=== PATIENT | female | born 1995 | race Caucasian/White ===

== ENCOUNTER 2019-10-22 13:49 | Emergency (ER) | payer OTHER, SELFPAY ==
--- NOTE | 2019-10-22 14:00 | ED.GENADULT ---
HPI - General Adult General Chief complaint: Dizziness Stated complaint: dizzy/lightheaded Time Seen by Provider: 10/22/19 14:15 Source: patient Mode of arrival: ambulatory Limitations: no limitations History of Present Illness HPI narrative: 24-year-old female patient presents to the [facility] with complaints of lightheadedness and dizziness that started approximately 1 hour ago while she was at work. Patient states she just came back from her lunch break and states that she was sweeping the floor and all of a sudden she just felt like she could not raise her head and had some lightheadedness and dizziness. Patient states that she Vincent did drive herself here. Denies any vision changes. Patient states she has had a slight headache. Denies any chest pain or shortness of breath. Denies any abdominal pain, nausea, vomiting or diarrhea. Patient unsure of when her last menstrual cycle was. Patient states she has been under a lot of stress recently due to the fact that she recently had a break-up about 2 months ago. Patient states she has had anxiety and panic attacks before the past but denies ever being treated for them. Related Data Home Medications Medication Instructions Recorded Confirmed No Home Medications 10/22/19 10/22/19 Allergies Allergy/AdvReac Type Severity Reaction Status Date / Time No Known Allergies Allergy Unknown Unverified 10/22/19 14:38 Review of Systems Review of Systems: Narrative: CONSTITUTIONAL: Denies fever, chills, or sweats. EYES: Denies visual changes, redness, or discharge. ENT: Denies rhinorrhea, congestion, sore throat, or otalgia. CARDIOVASCULAR: Denies chest pain, palpitations, or edema. RESPIRATORY: Denies cough or dyspnea. GASTROINTESTINAL: Denies abdominal pain, nausea, vomiting, or diarrhea. GENITOURINARY: Denies dysuria or hematuria. SKIN: Denies rash or itching. MUSCULOSKELETAL: Denies back pain, joint pain, or myalgia. NEUROLOGIC: Positive headache, denies numbness, positive dizziness, lightheadedness and weakness. PSYCHIATRIC: Denies anxiety or depression. [facility] Past Medical History Medical History (Updated 10/22/19 @ 15:09 by JAIME Garcia) Anxiety Ear anomaly Recurrent right ear lesion, once removed 2013 Comments At the time of my signature I agree with nursing past medical history, surgical, social, and family history. There is no relevant family history pertinent to the presenting complaint. Exam Narrative: Exam Narrative: GENERAL: Well-appearing, well-nourished, and in no acute distress. HEAD: Normocephalic, atraumatic. EYES: PERRLA and EOMI. ENT: Nares clear, no rhinorrhea or epistaxis. Mucous membranes moist. Posterior pharynx no erythema, tonsil enlargement, exudates or lesions present. Bilateral TMs are clear with no erythema or foreign bodies in the canal. NECK: Supple. No lymphadenopathy CHEST: Clear to auscultation. No respiratory distress. HEART: Regular rate and rhythm. No murmur heard. Normal peripheral pulses. ABDOMEN: Soft, nontender, nondistended, normal active bowel sounds. EXTREMITIES: Normal range of motion. No edema. SKIN: Warm, dry, no rash. NEURO: Alert and oriented x4, GCS 15. Cranial nerves II through XII grossly intact. No focal neurological deficits. Normal muscle strength and tone. Normal deep tendon reflexes. Negative Babinski, normal finger to nose coordination he had normal heel to cosby glide. Speech is clear. Normal gait. Negative Romberg and no pronator drift Course Reevaluation(s) Reevaluation #1: Reevaluated patient. Discussed with her that her EKG is normal, her urine looks good, her test is normal and her blood sugar is fine. Discussed with her that orthostatics vital signs look good as well too. Discussed with her that this could be possibly some anxiety or stress that is causing her symptoms or could be something else. Discussed with her that I can send her to the emergency department for further evaluation yaneli
[2019-10-22 14:05] VITALS: BP 121/69; PULSE 100; RESP 18; TEMP 37.1; O2SAT 100
--- NOTE | 2019-10-22 14:18 | ECG_ITS ---
Measurements Intervals [place] Rate: 98 P: 63 NE: 166 QRS: 46 QRSD: 99 T: 20 QT: 332 QTc: 425 Interpretive Statements SINUS RHYTHM INCOMPLETE RIGHT BUNDLE BRANCH BLOCK BORDERLINE T WAVE ABNORMALITY- ANTERIOR LEADS BORDERLINE ECG Electronically Signed On 10-22-2019 14:33:43 CDT by Gabe Chester D.O.
[2019-10-22 14:25] VITALS: BP 132/77; PULSE 97
[2019-10-22 14:27] VITALS: BP 125/75; PULSE 97
[2019-10-22 14:29] VITALS: BP 130/69; PULSE 101
[2019-10-22 14:32] LABS: Glucose Point of Care 77 (65-105)
[2019-10-22] MEDS: ACETAMINOPHEN 500 MG TABLET 1000 MG PO (15:02)
== END 2019-10-22 15:10 | disposition home or self-care (01) ==
PROVIDERS: Emergency Provider Nurse Practitioner Family; PCP Nurse Practitioner Adult Health
DX: R42 Dizziness and giddiness (principal)
CPT/HCPCS: 81003; 82948; 93005; 99213; A9270; G0463

== ENCOUNTER 2022-03-30 09:20 | Emergency (ER) | payer OTHER, SELFPAY ==
--- NOTE | ~2022-03-30 | CT_ITS ---
EXAMINATION: CT abdomen pelvis w con DATE: 03/30/2022 11:50 INDICATION: Bilateral flank pain. TECHNIQUE: Computed tomography (CT) of the abdomen and pelvis was performed with 100 mL Omnipaque 350 intravenous contrast. Automated exposure control and iterative reconstruction technique were employe d. The dose-length product was 896.18 mGy-cm. COMPARISON: None. FINDINGS: The visualized portions of the lung bases are clear without pneumonia or pleural effusion. The heart size is normal. No pericardial effusion. The liver, gallbladder, spleen, pancreas, adrenal glands, and kidneys are normal. There are no dilated loops of bowel. The appendix is normal. There is fat stranding around an epiploic appendage of sigmoid colon, consistent with epiploic appendagitis. There is a 10 x 11 mm lymph node in the mesentery on the right. There is no free intraperitoneal flui d. There is mild lumbar spondylosis. IMPRESSION: 1. Epiploic appendagitis of the sigmoid colon, which may be acute or chronic. 2. Mildly enlarged mesenteric lymph node, likely reactive. Reviewed, dictated and finalized at location A. [employer]
[2022-03-30 09:35] VITALS: BP 130/76; PULSE 92; RESP 14; TEMP 36.8; O2SAT 98
[2022-03-30 09:46] LABS: Basophils Absolute Auto 0.1 K/mm3 (0.0-0.1); Basophils Percent Auto 0.7 % (0.2-1.2); Eosinophils Absolute Auto 0.1 K/mm3 (0-0.3); Eosinophils Percent Auto 1.3 % (0-4.4); Hematocrit 41.4 % (37.0-47.0); Hemoglobin 13.1 g/dL (12.0-15.0); Immature Granulocyte Absolute 0.03 K/mm3 (0.00-0.031); Immature Granulocyte Percent A 0.4 % (0-0.5); Lymphocytes Absolute Auto 1.72 K/mm3 (0.9-3.2); Lymphocytes Percent Auto 24.9 % (18.3-44.2); Mean Corpuscular HGB Conc 31.6 g/dl (32-36); Mean Corpuscular Hemoglobin 25.2 pg (26-34); Mean Corpuscular Volume 79.6 fl (80-100); Mean Platelet Volume 9.4 fl (7.4-10.4); Monocytes Absolute Auto 0.5 K/mm3 (0.1-0.6); Monocytes Percent Auto 6.5 % (2.6-8.5); Neutrophils Absolute Auto 4.6 K/mm3 (1.3-6.7); Neutrophils Percent Auto 66.2 % (45.5-73.1); Platelet Count Result 313 k/mm3 (150-375); Red Cell Distribution Width 15.2 % (11.5-14.5); White Blood Count 6.9 K/mm3 (4.5-10.0)
[2022-03-30 10:00] LABS: Alanine Aminotransferase 18 U/L (6-35); Albumin Level 4.3 g/dL (3.5-5.1); Alkaline Phosphatase 77 U/L (38-126); Anion Gap 8 mmol/L (8-16); Aspartate Amino Transferase 21 U/L (14-36); Bilirubin,Total 0.6 mg/dL (0.2-1.3); Blood Urea Nitrogen 15 mg/dL (7-17); Calcium 8.4 mg/dL (8.4-10.2); Carbon Dioxide 22 mmol/L (22-30); Chloride 108 mmol/L (98-107); Estimated CRCL calculation 110 ml/min; Estimated Glomerular Filt Rate > 60; Glucose 100 mg/dL (65-110); Potassium 3.8 mmol/L (3.4-5.0); Sodium 138 mmol/L (137-145)
[2022-03-30 10:02] LABS: Add Urine Microscopic? YES; Bilirubin Urine 1+ (Negative); Blood Urine 1+ (Negative); Color Urine Yellow (Yellow); Glucose Urine UA Negative (Negative); Ketones Urine Trace mg/dL (Negative); Leukocyte Esterase Ur 2+ LEU/UL (Negative); Nitrate Urine Negative (Negative); Protein Urine Trace mg/dL (Negative); Specific Grav Ur 1.025 (1.001-1.035)
[2022-03-30 10:04] LABS: Appearance Urine Cloudy (Clear)
[2022-03-30 10:15] LABS: Mucus Urine Heavy /lpf; RBC Urine 21-50 /hpf (0-2); Squamous Epithelial Cell Urine Many /hpf (Few); WBC Urine 16-20 /hpf
--- NOTE | 2022-03-30 11:23 | ED.BACK ---
HPI - Back Pain/Injury General Chief Complaint: Back Pain/Injury Stated Complaint: severe lower back pain Time Seen by Provider: 03/30/22 10:11 History of Present Illness HPI Narrative: 27-year-old female with a history of anxiety and anemia presents to the emergency room for evaluation of severe lower back pain since Monday. Patient states the pain is bilateral and does not radiate. Is worse with movement. Was seen at the urgent care on Monday and was diagnosed with a kidney stone and given Flomax, naproxen, Keflex, and tizanidine. Last menstrual period was 03/29. Associated with 1 episode of vomiting at work. Denies hematuria, dysuria, decreased urinary flow. States medications given to her at the urgent care are not alleviating her symptoms. Denies injury or trauma. No radicular symptoms. No saddle anesthesia. Related Data Home Medications Medication Instructions Recorded Confirmed No Home Medications 10/22/19 10/22/19 Allergies Allergy/AdvReac Type Severity Reaction Status Date / Time No Known Allergies Allergy Unknown Unverified 10/22/19 14:38 Review of Systems Review of Systems: CONSTITUTIONAL: Denies fever, chills, or sweats. EYES: Denies visual changes, redness, or discharge. ENT: Denies rhinorrhea, congestion, sore throat, or otalgia. CARDIOVASCULAR: Denies chest pain, palpitations, or edema. RESPIRATORY: Denies cough or dyspnea. GASTROINTESTINAL: Denies abdominal pain, nausea, vomiting, or diarrhea. GENITOURINARY: Denies dysuria or hematuria. SKIN: Denies rash or itching. MUSCULOSKELETAL: Reports lower back pain NEUROLOGIC: Denies headache, numbness, dizziness, or weakness. PSYCHIATRIC: Denies anxiety or depression. [facility] Past Medical History Medical History Anxiety Asthma Depression Ear anomaly Recurrent right ear lesion, once removed 2014 Frequent headaches Surgical History Surgical History History of ear surgery closure of fistula of ear drum Family History Family History Grandparent Diabetes mellitus paternal grandmother Breast cancer maternal grandmother Exam Narrative: GENERAL: Well-appearing, well-nourished, no physical limitations, and in no acute distress. HEAD: Normocephalic, atraumatic. EYES: Conjunctivae normal, PERRLA and EOMI. CHEST: Clear to auscultation. No respiratory distress. No wheezes rales or rhonchi. HEART: Regular rate and rhythm. No murmur heard. Normal peripheral pulses. ABDOMEN: Soft, nontender, nondistended, normal active bowel sounds. BACK: No CVA tenderness; No midline lumbar tenderness, step-offs, bony abnormality; FROM. Tenderness over the paralumbar and thoracolumbar fascia EXTREMITIES: Normal range of motion. No edema. No clubbing or cyanosis SKIN: Warm, dry, no rash. No noted wounds NEURO: No focal deficits. Alert and oriented x3. MAEW. CN's II-XI intact bilaterally, normal gait PSYCH: Cooperative. Normal mood and affect. Course Vital Signs Vital signs: Vital Signs Temperature 36.8 C 03/30/22 09:35 Pulse Rate 92 03/30/22 09:35 Respiratory Rate 14 03/30/22 09:35 Blood Pressure 130/76 03/30/22 09:35 Pulse Oximetry 98 03/30/22 09:35 Oxygen Delivery Room Air 03/30/22 09:35 Temperature 36.8 C 03/30/22 09:35 Pulse Rate 92 03/30/22 09:35 Respiratory Rate 14 03/30/22 09:35 Blood Pressure 130/76 03/30/22 09:35 Pulse Oximetry 98 03/30/22 09:35 Oxygen Delivery Room Air 03/30/22 09:35 MDM - Back Pain/Injury Lab Data 03/30/22 09:39 03/30/22 09:40 Labs: Lab Results 03/30/22 03/30/22 03/30/22 Range/Units 09:39 09:40 09:50 WBC 6.9 (4.5-10.0) K/mm3 RBC 5.20 (4.2-5.4) M/mm3 Hgb 13.1 (12.0-15.0) g/dL Hct 41.4 (37.0-47.0) % MCV 79.6 L (80-100) fl MCH 25.2 L (2
[2022-03-30] MEDS: SODIUM CHLORIDE 0.9% IV 1,000 ML 999 ML IV CONT (11:30)
[2022-03-30 13:20] VITALS: BP 118/86; PULSE 89; RESP 16; O2SAT 99
== END 2022-03-30 13:20 | disposition home or self-care (01) ==
PROVIDERS: Emergency Medicine; Emergency Provider Nurse Practitioner Family
DX: K63.89 Other specified diseases of intestine (principal); R10.9 Unspecified abdominal pain; J45.909 Unspecified asthma, uncomplicated; Z87.442 Personal history of urinary calculi
CPT/HCPCS: 36415; 74177; 80053; 81001; 81025; 85025; 87086; 96360; 99284; J7030; Q9967

== ENCOUNTER 2022-06-07 10:05 | Emergency (ER) | payer OTHER, SELFPAY ==
[2022-06-07 10:11] VITALS: BP 144/85; PULSE 78; RESP 16; TEMP 37.2; O2SAT 99
--- NOTE | 2022-06-07 10:14 | ECG_ITS ---
Measurements Intervals [place] Rate: 93 P: 50 [place]: 145 QRS: 25 QRSD: 89 T: 9 QT: 329 QTc: 410 Interpretive Statements SINUS RHYTHM ST DEVIATION AND MODERATE T-WAVE ABNORMALITY, CONSIDER ANTERIOR ISCHEMIA [-0.1+ mV T WAVE IN V3/V4] ABNORMAL ECG COMPARED TO ECG 10/22/2019 14:31:19 NO SIGNIFICANT CHANGES Electronically Signed On 06-07-2022 14:15:05 ELECTRONIC INSTALLER by Escobar Kaiser M.D.
--- NOTE | 2022-06-07 13:17 | PC.NURSE ---
Patient states to this RN that she is no longer wanting to wait to be seen in the ED and I'm going to go somewhere else . Patient ambulated out of emergency department without assistance.
== END 2022-06-07 13:20 | disposition left against medical advice (07) ==
PROVIDERS: Emergency Provider Emergency Medicine
DX: R07.81 Pleurodynia (principal)
CPT/HCPCS: 93005; 99199

== ENCOUNTER 2023-04-03 22:12 | Emergency (ER) | payer BC, OTHER, SELFPAY ==
--- NOTE | ~2023-04-03 | XR_ITS ---
Clinical Indication: Cough PA and lateral views of the chest: Comparison: None Findings: The lungs are clear, without evidence of focal consolidation or pleural effusion. Cardiome diastinal silhouette is within normal limits. Bones and soft tissues are unremarkable. Impression: Normal chest. Reviewed, dictated and finalized at [facility]. E POLISHER Impression: Normal chest.
[2023-04-03 22:28] VITALS: BP 152/71; PULSE 90; RESP 20; TEMP 36.8; O2SAT 98
[2023-04-04 00:17] LABS: Influenza A QL RT-PCR Negative (Negative); Influenza B QL RT-PCR Negative (Negative); RSV RNA, RT-PCR Negative (Negative); SARS-CoV-2 RNA PCR Negative (Negative)
--- NOTE | 2023-04-04 00:31 | ED.URI ---
HPI - URI/Sore Throat General Chief Complaint: Upper Respiratory Infection Stated Complaint: cough Time Seen by Provider: 04/03/23 23:42 History of Present Illness HPI Narrative: 28-year-old female reports for evaluation for productive cough since 03/22/2023. Patient states she tested positive for influenza a on the 22 of March and since then has had a persistent productive cough. She states at times she coughs so hard it causes her to urinate in her pants, gag and vomit. She reports intermittent wheezing, denies asthma, smoking or COPD. She denies abdominal pain, fever, sore throat, otalgia, nasal congestion, urinary complaints. Related Data Home Medications Medication Instructions Recorded Confirmed atorvastatin 40 mg tablet 40 mg PO 01/18/23 escitalopram oxalate 10 mg tablet 10 mg PO 01/18/23 Allergies Allergy/AdvReac Type Severity Reaction Status Date / Time No Known Allergies Allergy Unknown Verified 04/03/23 22:12 Review of Systems Review of Systems: CONSTITUTIONAL: Denies fever, chills, or sweats. EYES: Denies visual changes, redness, or discharge. ENT: See HPI CARDIOVASCULAR: Denies chest pain, palpitations, or edema. RESPIRATORY: See HPI GASTROINTESTINAL: Denies abdominal pain, nausea, vomiting, or diarrhea. GENITOURINARY: Denies dysuria or hematuria. SKIN: Denies rash or itching. MUSCULOSKELETAL: Denies back pain, joint pain, or myalgia. NEUROLOGIC: Denies headache, numbness, or weakness. PSYCHIATRIC: Denies anxiety or depression. REPLACED BY [facility] Past Medical History Medical History Anxiety Asthma Depression Ear anomaly Recurrent right ear lesion, once removed 2014 Frequent headaches Vaginal discharge Surgical History Surgical History History of ear surgery closure of fistula of ear drum Family History Family History Grandparent Diabetes mellitus paternal grandmother Breast cancer maternal grandmother Social History Social History Smoking status: Never smoker Alcohol intake: former Substance use: never Lack of Transportation: No Lack of Food: Never True Current Housing: I Have Housing Concerned About Future Housing: No Difficulty Paying Gas/Electric Bills: No Difficulty Paying for Meds: No Currently Unemployed: No Education: High School Diploma/GED Difficulty w/ Childcare or Family Care: No Living arrangements: with family Occupation/Education: occupation Gender identity (if verbalized by the patient): Female Exam Narrative: GENERAL: Well-appearing, well-nourished, and in no acute distress. HEAD: Normocephalic, atraumatic. EYES: PERRLA and EOMI. ENT: Nares clear, no rhinorrhea or epistaxis. Mucous membranes moist. Bilateral TMs are yu nonbulging. Normal canals. Posterior pharynx without erythema or edema. Uvula midline. No tonsillar hypertrophy. NECK: Supple. CHEST: Rhonchi throughout lung duke. No crackles or wheezing. HEART: Regular rate and rhythm. No murmur heard. Normal peripheral pulses. ABDOMEN: Soft, nontender, nondistended, normal active bowel sounds. EXTREMITIES: Normal range of motion. No edema. SKIN: Warm, dry, no rash. NEURO: No focal deficits. Alert and oriented x3 Course Vital Signs Vital signs: Vital Signs Temperature 98.3 F 04/03/23 22:28 Pulse Rate 90 04/03/23 22:28 Respiratory Rate 20 04/03/23 22:28 Blood Pressure 152/71 H 04/03/23 22:28 Pulse Oximetry 98 04/03/23 22:28 Oxygen Delivery Room Air 04/03/23 22:28 Temperature 98.1 F 04/04/23 00:52 Pulse Rate 81 04/04/23 00:52 Respiratory Rate 16 04/04/23 00:52 Blood Pressure 133/78 04/04/23 00:52 Pulse Oximetry 97 04/04/23 00:52 Oxygen Delivery Room Air 04/03/23 22:28
[2023-04-04 00:52] VITALS: BP 133/78; PULSE 81; RESP 16; TEMP 36.7; O2SAT 97
== END 2023-04-04 00:53 | disposition home or self-care (01) ==
PROVIDERS: Emergency Medicine; Emergency Provider Physician Assistant; PCP Internal Medicine
DX: J40 Bronchitis, not specified as acute or chronic (principal); Z20.822 Contact with and (suspected) exposure to COVID-19; F41.9 Anxiety disorder, unspecified; F32.A Depression, unspecified
CPT/HCPCS: 71046; 87637; 99283

== ENCOUNTER 2023-04-22 13:56 | Emergency (ER) | payer BC, OTHER, SELFPAY ==
[2023-04-22 14:14] VITALS: BP 138/80; PULSE 103; RESP 18; TEMP 36.8; O2SAT 98
--- NOTE | 2023-04-22 14:49 | ED.EAR ---
HPI - Ear Problem General Chief complaint: Ear Stated complaint: Ears Irritation Time Seen by Provider: 04/22/23 15:01 Source: patient and RN notes reviewed Mode of arrival: ambulatory Limitations: no limitations History of Present Illness HPI Narrative: 28-year-old female presents concern for bilateral ear pain for 1 week. Reports decreased hearing and popping in the left ear. She reports she has been sick with upper respiratory symptoms for 1 month. MD Complaint: ear pain Related Data Home Medications Medication Instructions Recorded Confirmed atorvastatin 40 mg tablet 40 mg PO 01/18/23 escitalopram oxalate 10 mg tablet 10 mg PO 01/18/23 albuterol sulfate 90 mcg/actuation 1 inh inhalation QID shortness of 04/22/23 aerosol inhaler breath or wheezing Allergies Allergy/AdvReac Type Severity Reaction Status Date / Time No Known Allergies Allergy Unknown Verified 04/22/23 14:15 Review of Systems Review of Systems: CONSTITUTIONAL: Denies malaise, chills, sweats, or fever. EYES: Denies visual changes, redness, or discharge. ENT: Reports rhinorrhea, congestion. Denies sinus pain, and sore throat. Reports bilateral ear pain CARDIOVASCULAR: Denies chest pain, palpitations, or edema. RESPIRATORY: Denies cough. Denies dyspnea. GASTROINTESTINAL: Denies abdominal pain, nausea, vomiting, diarrhea SKIN: Denies rash or itching. MUSCULOSKELETAL: Denies myalgia. NEUROLOGIC: Denies headache. All systems reviewed & are unremarkable except as noted in HPI and below PMFSH Past Medical History Medical History Anxiety Asthma Depression Ear anomaly Recurrent right ear lesion, once removed 2014 Frequent headaches Vaginal discharge Surgical History Surgical History History of ear surgery closure of fistula of ear drum Family History Family History Grandparent Diabetes mellitus paternal grandmother Breast cancer maternal grandmother Social History Social History Smoking status: Never smoker Alcohol intake: former Substance use: never Lack of Transportation: No Lack of Food: Never True Current Housing: I Have Housing Concerned About Future Housing: No Difficulty Paying Gas/Electric Bills: No Difficulty Paying for Meds: No Currently Unemployed: No Education: High School Diploma/GED Difficulty w/ Childcare or Family Care: No Living arrangements: with family Occupation/Education: occupation Gender identity (if verbalized by the patient): Female Comments At time of signature, agree with nursing past medical, surgical, social and family history. There is no relevant family history pertinent to the presenting complaint Exam Narrative: GENERAL: Well-appearing, well-nourished, and in no acute distress. HEAD: Normocephalic EYES: PERRLA, conjunctivae clear ENT: Nares clear, turbinates edematous, clear discharge. Mucous membranes moist. TM pearly yu with dull light reflex bilaterally; no tragal tenderness. Oropharynx not erythematous without lesions. Tonsils not enlarged and without exudate, no drooling, no hoarseness, no trismus, uvula midline. NECK: Supple. No lymphadenopathy CHEST: Clear to auscultation, breath sounds equal. No wheezing, rhonchi, rales, or stridor. No respiratory distress, speaks in full sentences. HEART: Regular rate and rhythm. No murmur heard. SKIN: Warm, dry, no rash. NEURO: Alert and oriented x3. PSYCH: Normal mood and affect Course Course Emergency Course: Patient is aware of diagnosis, understands and agrees to treatment plan. Anticipatory guidance given. Patient agrees to follow-up as directed and is aware of reasons to seek care at the emergency department. Portions of this record may have been created wit
== END 2023-04-22 15:19 | disposition home or self-care (01) ==
PROVIDERS: Emergency Provider Nurse Practitioner; PCP Internal Medicine
DX: H66.93 Otitis media, unspecified, bilateral (principal); J45.909 Unspecified asthma, uncomplicated
CPT/HCPCS: 99213; G0463

== ENCOUNTER 2023-08-30 15:11 | Outpatient (CLI) | payer OTHER, SELFPAY ==
[2023-09-01 19:29] LABS: Testosterone Total 19 ng/dL (2-45)
[2023-09-03 02:08] LABS: DHEA-Sulfate 198 mcg/dL (14-349); FSH 6.5 mIU/mL; Prolactin 10.2 ng/mL
[2023-09-05 20:34] LABS: Anti Mullerian Hormone,Female 4.65 ng/mL (0.69-13.39)
[2023-09-08 08:13] LABS: Estradiol, Ultrasensitive 36 pg/mL
== END 2023-08-30 15:12 | disposition home or self-care (01) ==
LOC: ANHLAB 15:12
PROVIDERS: PCP Internal Medicine; Visit Provider Student in an Organized Health Care Education/Training Program
DX: N91.2 Amenorrhea, unspecified (principal)
CPT/HCPCS: 36415; 82627; 82670; 83001; 84146; 84403; 84443

== ENCOUNTER 2024-07-24 11:52 | Outpatient (CLI) | payer OTHER, SELFPAY ==
[2024-07-24 12:51] LABS: Erythrocyte Sedimentation Rate 21 mm/hr (0-20)
--- OUTSIDE RECORDS SUMMARY | 2024-07-24 13:24 | XMS_ITS | Referral Summary ---
Author Organization [facility] Address [address] [place] [address] Care Team Providers Care Remote Control Assembler Name Role Phone Misha Tan MD Primary Care Provide r Encounters Date Type Department Care Team Description 06/26/2024 Telephone [facility] [address] [place], [place] [id number] Isha Emery 05/28/2024 Orders Only [facility] Ot[facility]ology [address] [place] [address], [address] [phone] Meghana Altamirano CMA Conductive hearing loss, unspecified laterality (Primary Dx) 05/28/2024 1:20 PM EXTERIOR INTERIOR SPECIALIST Procedure visit [facility] [address] [place] [address], [address] [phone] Conductive hearing loss of right ear with restricted hearing of left ear (Primary Dx) 05/28/2024 1:40 PM EXTERIOR INTERIOR SPECIALIST Office Visit [facility], [address] [phone] Yeison Kapadia MD Chronic atticoantral suppurative otitis media, right ear (Primary Dx); Conductive hearing loss of right ear with unrestricted hearing of left ear 05/16/2024 Telephone [facility] Otolaryngology [address] [phone] Sheeba Farrar, from Last 3 Months Allergies No known active allergies Medications atorvastatin (LIPITOR) 40 mg tablet Take 1 tablet (40 mg total) by mouth daily 01/11/2023 Active escitalopram (LEXAPRO) 10 mg tablet 01/18/[address] (VOLTAREN) 75 mg EC tablet Take 1 tablet (75 mg total) by mouth 2 (two) times a day 01/18/2023 Active metroNIDAZOLE (FLAGYL) 500 mg tablet 500 MG ORALLY EVERY 12 HOURS 01/18/2023 Active propranoloL (INDERAL) 20 mg tablet Take 1 tablet (20 mg total) by mouth 2 (two) times a day 60 tablet 5 01/24/2023 Active escitalopram (LEXAPRO) 20 mg tablet Take 1 tablet (20 mg total) by mouth daily 06/27/2023 Active ibuprofen (ADVIL,MOTRIN) 800 mg tablet 07/22/2023 Activ e cyclobenzaprine (FLEXERIL) 10 mg tablet 07/22/2023 Active amoxicillin (AMOXIL) 875 mg tablet TAKE 1 TABLET BY MOUTH EVERY 12 HOURS X 10 DAYS 04/22/2023 Active topiramate (TOPAMAX) 25 mg capsuleIndicati ons:Migraine Prevention Take 1 capsule (25 mg total) by mouth 2 (two) times a day 60 capsule 5 07/25/2023 Active SUMAtriptan (IMITREX) 50 mg tabletIndicatio ns:Migraine Take 1 tablet (50 mg total) by mouth once as needed for migraine (headache) May repeat one time after 2 hours if needed. 9 tablet 5 07/25/2023 Active Active Problems Problem Noted Date Diagnosed Date Abnormal laboratory test result 07/12/2023 Headache 07/08/2023 Otalgia of right ear 03/30/2023 Pain of ear structure 03/28/2023 Essential tremor 01/24/2023 Hyperlipidemia 01/11/2023 Low serum vitamin B12 01/04/2023 Moderate recurrent major depression 01/04/2023 Pain in left foot 01/04/2023 Resting tremor 01/04/2023 Upper respiratory infection 01/04/2023 Vitamin D deficiency 01/04/2023 Anemia 08/31/2021 Obstructive sleep apnea syndrome 05/02/2021 Bilateral plantar fasciitis 10/12/2020 Low mean corpuscular volume (MCV) 04/29/2018 Migraine 04/22/2018 Mixed anxiety and depressive disorder 04/22/2018 Social History Tobacco Use Types Packs/Day Years Used Date Smoking Tobacco: Never Passive Smoke Exposure: Never Smokeless Tobacco: Never Tobacco Cessation:Counseling Given: Not Answered Comments Unknown Sex and Gender Information Value Date Recorded Sex Assigned at Not on file Legal Sex Female 8:52 AM EXTERIOR INTERIOR SPECIALIST Gender Identity Female 05/10/2024 9:39 PM EXTERIOR INTERIOR SPECIALIST Sexual Orientation Straight 05/10/2024 9: 39 PM EXTERIOR INTERIOR SPECIALIST Last Filed Vital Signs Vital Sign Reading Time Taken Comments Blood Pressure 110/66 07/25/2023 12:59 PM CDT Pulse - - Temperature - - Respiratory Rate - - Oxygen Saturation - - Inhaled Oxygen Concentration - - Weight 99.3 kg (219 lb) 07/25/2023 12:59 PM CDT Height 167.6 cm (5' 6 ) 07/25/2023 12:59 PM CDT Body Mass Index 35.35 07/25/2023 12:59 PM CDT Plan of Treatment Not on file Procedures Procedure Name Priority Date/Time Associated Diagnosis Comments AUDBASE RESULTS 05/28/2024 1:14 PM EXTERIOR INTERIOR SPECIALIST from Last 3 Months Results * AudBase Results (05/28/2024 1:14 PM EXTERIOR INTERIOR SPECIALIST) Provider Scanning AUDIOLOGY SERVICES ORDERABLES Final Result from Last 3 Months Insurance [facility] Member Subscriber Plan / Payer (Ef fective 2022-Present) Name:Amelia Tucker Relation to Subscriber:Self Name:Amelia Tucker Payer ID:[id number] ([facility]) Type:MEDICAID RISK OTHER Address: [address] [place] [id number] [facility] Care Teams Remote Control Assembler Relationship Specialty Start Date End Date Misha Tan MD [address] [place] [address] PCP - General Internal Medicine 01/05/23
--- OUTSIDE RECORDS SUMMARY | 2024-07-24 13:24 | XMS_ITS | Clinical Summary ---
Author Organization [facility] Address [address] [place] [address] Care Team Providers Care E Business Specialist Name Role Phone Misha Tan MD Primary Care Provide r Allergies No known active allergies Medications atorvastatin [...] 04/22/2018 Mixed anxiety and depressive disorder 04/22/2018 Encounters Date Type Department Care Team Description 06/26/2024 Telephone [facility] [address] [id number] Isha Emery 05/28/2024 1:40 PM HEALTH CLUB MANAGER Office Visit [facility] Otolaryngology [facility], [address] [place] [address] Yeison Kapadia MD Chronic atticoantral suppurative otitis media, right ear (Primary Dx); Conductive hearing loss of right ear with unrestricted hearing of left ear 05/28/2024 1:20 PM HEALTH CLUB MANAGER Procedure visit [facility] Otolaryngology [address], [address] [place] [address] Conductive hearing loss of right ear with restricted hearing of left ear (Primary Dx) 05/28/2024 Orders Only [facility] Otolaryngology [address], [address] [place] [address] Meghana Altamirano CMA Conductive hearing loss, unspecified laterality (Primary Dx) 05/16/2024 Telephone [facility] Otolaryngology [address] [address] Sheeba Farrar MS from Last 3 Months Social History Tobacco Use Types Packs/Day Years Used Date Smoking Tobacco: Never Passive Smoke Exposure: Never Smokeless Tobacco: Never Tobacco Cessation:Counseling Given: Not Answered Comments Unknown Sex and Gender Information Value Date Recorded Sex Assigned at Not on file Legal Sex Female 8:52 AM HEALTH CLUB MANAGER Gender Identity Female 05/10/2024 9:39 PM HEALTH CLUB MANAGER Sexual Orientation Straight 05/10/2024 9: 39 PM HEALTH CLUB MANAGER Obstetrics History Last Filed Vital Signs Vital Sign Reading [...] 07/25/2023 12:59 PM CDT Plan of Treatment Health Maintenance Due Date Last Done Comments Cervical Cancer Screening 1995 Depression Screening 1995 Hepatitis C Screening 1995 Varicella Vaccines (2 of 2 - 13+ 2-dose series) 06/04/2009 05/07/2009 Regular Well Visit/Exam 18-64 2013 Covid-19 Vaccine ( season) 2023 12/16/2021, 01/04/2021, 12/14/2020, Additional history exists Influenza Vaccine (Season Ended) 2024 04/22/2019, 03/01/2017, 05/14/2014, Additional history exists DTaP/Tdap/Td Vaccine (7 - Td or Tdap) 08/19/2026 08/19/2016, 01/22/2009, 03/25/1997, Additional history exists Hepatitis B Screening Completed 01/16/1996 , 1995, 1995 HPV Vaccines Completed 10/17/2013, 04/18, 01/22/2013, Additional history exists Pneumococcal vaccine <65 Aged Out No longer eligible based on patient's age to complete this topic Procedures Procedure Name Priority Date/Time Associated Diagnosis Comments AUDBASE RESULTS 05/28/2024 1:14 PM HEALTH CLUB MANAGER from Last 3 Months Results * AudBase Results (05/28/2024 1:14 PM HEALTH CLUB MANAGER) Provider Scanning AUDIOLOGY SERVICES ORDERABLES Final Result from Last 3 Months Insurance [facility] Care Teams E Business Specialist Relationship Specialty Start Date End Date Misha Tan MD [address] [phone] PCP - General Internal Medicine 01/05/23
--- OUTSIDE RECORDS SUMMARY | 2024-07-24 13:24 | XMS_ITS | Clinical Summary ---
Author Organization [facility] Address [address] [place] [address] Care Team Providers Care Labor Relations Officer Name Role Phone Grayson Brown MD Primary Care Provider [phone] Source Comments [facility],non-owned Affiliates and Associated Physician Practices is amultiple site organization consisting of ambulatory clinics and hospital sitesin [place], [place], [place] and [place]. This disclosure is being madepursuant to the Care Everywhere program and may not contain all information available regarding this patient. Last updated 18.[facility] Allergies No known active allergies Medications * Be aware that medications may not be up to date on this document. Alwaysverify current medications with the patient. Medication Sig Dispensed Refills Start Date End Date Status MedroxyPROGESTERone Acetate (DEPO-PROVERA IM) Inject into muscle. Active Active Problems No known active problems Social History Tobacco Use Types Packs/Day Years Used Date Smoking Tobacco: Never Assessed Sex and Gender Information Value Date Recorded Sex Assigned at Not on file Gender Identity Not on file Sexual Orientation Not on file Last Filed Vital Signs Vital Sign Reading Time Taken Comments Blood Pressure - - Pulse - - Temperature - - Respiratory Rate - - Oxygen Saturation - - Inhaled Oxygen Concentration - - Weight 68.6 kg (151 lb 3.2 oz) 01/07/2013 8:44 A M CDT Height 169 cm (5' 6.54 ) 01/07/2013 8:44 AM CDT Body Mass Index 24.01 01/07/2013 8:44 AM CDT Plan of Treatment Health Maintenance Due Date Last Done Comments PAP SMEAR 1995 HIV SCREENING 2010 HEPATITIS C SCREENING 01/05/2013 DTAP/TDAP/TD VACCINES (1 - Tdap) 2014 HEPATITIS B VACCINE (1 of 3 - 19+ 3-dose series) 2014 COVID-19 VACCINE (1 - 2023-2 5 season) 2023 DEPRESSION SCREENING 04/17/2024 INFLUENZA VACCINE (Season Ended) 2024 ZOSTER VACCINE (1 of 2) 2045 HIB VACCINE Aged Out No longer eligi ble based on patient's age to complete this topic HPV VACCINE Aged Out No longer eligi ble based on patient's age to complete this topic MENINGOCOCCAL (Group B) VACC INE SHARED DECISION-MAKING Aged Out No longer eligibl e based on patient's age to complete this topic MENINGOCOCCAL GROUPS A/C/Y/W VACCINE Aged Out No longer eligible b ased on patient's age to complete this topic PNEUMOCOCCAL VACCINE Aged Out No long er eligible based on patient's age to complete this topic Care Teams Labor Relations Officer Relationship Specialty Start Date End Date Grayson Brown MD PCP - General Pediatrics 11/09/12
--- OUTSIDE RECORDS SUMMARY | 2024-07-24 13:24 | XMS_ITS | Data Portability ---
Author Organization [facility] [place] Address [address] [place] [address] Assessment Encounter Date Assessment Date Assessment LastModified by Organization Details LastModified Time 08/03/2021 08/03/2021 Annual gynecological exam performed. Patient will come back in a year unless there are new symptoms. Not available 08/03/2021 12:49:39 Plan of Treatment Reminders Order Date Submit Date Provider Last Modified By Organization Details Last Modified Time Details Appointments None recorded. Lab CBC w/ auto diff [facility] (Lab), [address], [place], [address], 2 09:31:50 iron + TIBC + ferritin, serum [facility] (Lab), [address] [place], [address], 2 09:31:51 vitamin B12 + folate, serum or blood 022 [facility] (Lab), [address] [place], [address], 2 09:31:52 prolactin , serum [facility] (Lab), [address], [place], [address], 2 02:48:17 TSH, serum or plasma 022 [facility] (Lab), [address] [facility], [place], [address], 2 02:48:17 HbA1c (hemoglob in A1c), blood [facility] (Lab), [address] [facility], [place], [address], 2 02:48:17 FSH (follicle -stimulat ing hormone), serum [facility] (Lab), [address] [facility], [place], [address], 2 02:48:18 lh (luteiniz ing hormone), serum [facility] (Lab), [address] [facility], [place], [address], 2 02:48:18 CBC w/ auto diff [facility] (Lab), [address] [facility], [place], [address], 2 02:48:16 CMP, serum or plasma [facility] (Lab), [address] [facility], [place], [address], 2 02:48:16 anti-dirk erian hormone (amh), serum [facility] (Lab), [address] [facility], [place], [address], 2 02:48:16 Referral None recorded. Procedures None recorded. Surgeries None recorded. Imaging None recorded. Medication Orders None recorded. Patient TargetsNo targets recorded. Patient InstructionsNo instructions recorded. Reason for Referral None Reported. Results Created Date Observation Date Name Description Value Unit Range Abnormal Flag Note LastModifiedBy Organization Detail LastModifiedTime 08/04/19 22 08/03/2021 CBC W/DIF F WBC 11.5 10'3/ uL 3.6-10 .2 high Not Available [facility] (Lab) [address], [place], [address], 08/04/2021 02:48:15 08/04/19 22 08/03/2021 CBC W/DIF F RBC 5.30 10'6/ uL (based on docume nted legal sex) 4.10-5 .30 Not Available [facility] (Lab) [address], [place], [address], 08/04/2021 02:48:15 08/04/19 22 08/03/2021 CBC W/DIF F HGB 12.8 g/dL (based on docume nted legal sex) 11.9-1 5.8 Not Available [facility] (Lab) [address], [place], [address], 08/04/2021 02:48:15 08/04/19 22 08/03/2021 CBC W/DIF F HCT 41.7 % (based on docume nted legal sex) 37.4-4 8.3 Not Available [facility] (Lab) [address], [place], [address], 08/04/2021 02:48:15 08/04/19 22 08/03/2021 CBC W/DIF F MCV 79.0 fL 82.0-9 9.0 low Not Available [facility] (Lab) [address], [place], [address], 08/04/2021 02:48:15 08/04/19 22 08/03/2021 CBC W/DIF F MCH 24.0 pg 27.0-3 3.0 low Not Available [facility] (Lab) [address], [place], [address], 08/04/2021 02:48:15 08/04/19 22 08/03/2021 CBC W/DIF F MCHC 31.0 g/dL 32.0-3 6.0 low Not Available [facility] (Lab) [address] [facility], [place], [address], 08/04/2021 02:48:15 08/04/19 22 08/03/2021 CBC W/DIF F RDW 16.0 % 11.0-1 5.0 high Not Available [facility] (Lab) [address] [facility], [place], [address], 08/04/2021 02:48:15 08/04/19 22 08/03/2021 CBC W/DIF F plt 351 10'3/ uL 150-45 0 Not Available [facility] (Lab) [address] [facility], [place], [address], 08/04/2021 02:48:15 08/04/19 22 08/03/2021 CBC W/DIF F MPV 10.6 fL 9.8-12 .7 Not Available [facility] (Lab) [address] [facility], [place], [address], 08/04/2021 02:48:15 08/04/19 22 08/03/2021 CBC W/DIF F NRBC's 0.00 % 0 Not Available [facility] (Lab) [address] [facility], [place], [address], 08/04/2021 02:48:15 08/04/19 22 08/03/2021 CBC W/DIF F absolute NRBCs 0.0 10'3/ uL 0 Not Available [facility] (Lab) [address] [facility], [place], [address], 08/04/2021 02:48:15 08/04/19 22 08/03/2021 CBC W/DIF F neutrophils 68.0 % 37.0-7 2.0 Not Available [facility] (Lab) [address] [place], [address], 08/04/2021 02:48:15 08/04/19 22 08/03/2021 CBC W/DIF F lymphocytes 22.0 % 16.0-4 8.0 Not Available [facility] (Lab) [address] [place], [address], 08/04/2021 02:48:15 08/04/19 22 08/03/2021 CBC W/DIF F monocytes 7.0 % 4.0-14 .0 Not Available [facility] (Lab) [address] [facility], [place], [address], 08/04/2021 02:48:15 08/04/19 22 08/03/2021 CBC W/DIF F eosinophils 2.0 % 0.0-9. 0 Not Available [facility] (Lab) [address] [facility], [place], [address], 08/04/2021 02:48:15 08/04/19 22 08/03/2021 CBC W/DIF F basophils 0.0 % 0.0-2. 0 Not Available [facility] (Lab) [address] [facility], [place], [address], 08/04/2021 02:48:15 08/04/19 22 08/03/2021 CBC W/DIF F immature granulocytes 1.0 % no define d refere nce range Not Available [facility] (Lab) [address] [facility], [place], [address], 08/04/2021 02:48:15 08/04/19 22 08/03/2021 CBC W/DIF F absolute neutrophils 7.9 10'3/ uL 1.1-6. 0 high Not Available [facility] (Lab) [address] [place], [address], 08/04/2021 02:48:15 08/04/19 22 08/03/2021 CBC W/DIF F absolute lymphocytes 2.5 10'3/ uL 0.7-3. 4 Not Available [facility] (Lab) [address] [place], [address], 08/04/2021 02:48:15 08/04/19 22 08/03/2021 CBC W/DIF F absolute monocytes 0.8 10'3/ uL 0.3-1. 0 Not Available [facility] (Lab) [address] [facility], [place], [address], 08/04/2021 02:48:15 08/04/19 22 08/03/2021 CBC W/DIF F absolute eosinophils 0.2 10'3/ uL 0.0-0. 6 Not Available [facility] (Lab) [address] [facility], [place], [address], 08/04/2021 02:48:15 08/04/19 22 08/03/2021 CBC W/DIF F absolute basophils 0.1 10'3/ uL 0.0-0. 1 Not Available [facility] (Lab) [address] [facility], [place], [address], 08/04/2021 02:48:15 08/04/19 22 08/03/2021 CBC W/DIF F absolute immature granulocytes 0.10 10'3/ uL 0.00-0 .10 2021 1:08 AM: P indic ates parti al resul ts on a panel have been relea sed. Addit ional resul ts will follo w. 2021 1:08 AM: This resul t has been final verif ied. No addit ional or guillen ed resul ts are expec timothy. Not Available [facility] (Lab) [address] [facility], [place], [address], 08/04/2021 02:48:15 08/04/19 22 08/03/2021 ANTIM ULLER DAMON HORMO NE (AMH) anti-mulleri an hormone (amh) 3.08 NG/mL Femal e Refer ence Range s 20-24 years : 1.22 - 11.70 ng/mL 25-29 years : 0.89 - 9.85 ng/mL 30-34 years : 0.58 - 8.13 ng/mL 35-39 years : 0.15 - 7.49 ng/mL 40-44 years : 0.03 - 5.47 ng/mL The follo wing resul ts were obtai chhaya with the Ele[employer] ys assay . Resul ts from assay s of other manuf actur es canno t be used inter guillen ably. Not Available [facility] (Lab) [address] [facility], [place], [address], 08/04/2021 02:48:16 08/04/19 22 08/03/2021 CMP(C OMPRE HENSI VE METAB OLIC PANEL ) sodium 138 mmol/ L 133-14 6 Not Available [facility] (Lab) [address] [facility], [place], [address], 08/04/2021 02:48:16 08/04/19 22 08/03/2021 CMP(C OMPRE HENSI VE METAB OLIC PANEL ) potassium 3.8 mmol/ L 3.5-5. 1 Not Available [facility] (Lab) [address] [facility], [place], [address], 08/04/2021 02:48:16 08/04/19 22 08/03/2021 CMP(C OMPRE HENSI VE METAB OLIC PANEL ) chloride 104 mmol/ L 98-107 Not Available [facility] (Lab) [address] [place], [address], 08/04/2021 02:48:16 08/04/19 22 08/03/2021 CMP(C OMPRE HENSI VE METAB OLIC PANEL ) carbon dioxide 24 mmol/ L 21-31 Not Available [facility] (Lab) [address] [place], [address], 08/04/2021 02:48:16 08/04/19 22 08/03/2021 CMP(C OMPRE HENSI VE METAB OLIC PANEL ) anion gap 10 mmol/ L 4-13 Not Available [facility] (Lab) [address] [place], [address], 08/04/2021 02:48:16 08/04/19 22 08/03/2021 CMP(C OMPRE HENSI VE METAB OLIC PANEL ) blood urea nitrogen 10 mg/dL 7-25 Not Available [facility] (Lab) [address] [facility], [place], [address], 08/04/2021 02:48:16 08/04/19 22 08/03/2021 CMP(C OMPRE HENSI VE METAB OLIC PANEL ) creatinine 0.81 mg/dL 0.60-1 .30 Not Available [facility] (Lab) [address] [facility], [place], [address], 08/04/2021 02:48:16 08/04/19 22 08/03/2021 CMP(C OMPRE HENSI VE METAB OLIC PANEL ) egfrcr (CKD-epi 2020) >90 mL/mi n/1.7 3_m2 >=60 Not Available [facility] (Lab) [address] [facility], [place], [address], 08/04/2021 02:48:16 08/04/19 22 08/03/2021 CMP(C OMPRE HENSI VE METAB OLIC PANEL ) calcium 8.9 mg/dL 8.3-10 .5 Not Available [facility] (Lab) [address] [facility], [place], [address], 08/04/2021 02:48:16 08/04/19 22 08/03/2021 CMP(C OMPRE HENSI VE METAB OLIC PANEL ) glucose 75 mg/dL 70-100 Not Available [facility] (Lab) [address] [place], [address], 08/04/2021 02:48:16 08/04/19 22 08/03/2021 CMP(C OMPRE HENSI VE METAB OLIC PANEL ) protein, total 7.0 g/dL 6.4-8. 3 Not Available [facility] (Lab) [address] [facility], [place], [address], 08/04/2021 02:48:16 08/04/19 22 08/03/2021 CMP(C OMPRE HENSI VE METAB OLIC PANEL ) albumin 4.1 g/dL 3.5-5. 0 Not Available [facility] (Lab) [address] [facility], [place], [address], 08/04/2021 02:48:16 08/04/19 22 08/03/2021 CMP(C OMPRE HENSI VE METAB OLIC PANEL ) ALT 13 units /L 9-43 Not Available [facility] (Lab) [address] [facility], [place], [address], 08/04/2021 02:48:16 08/04/19 22 08/03/2021 CMP(C OMPRE HENSI VE METAB OLIC PANEL ) alkaline phosphatase 70 units /L 34-104 Not Available [facility] (Lab) [address] [facility], [place], [address], 08/04/2021 02:48:16 08/04/19 22 08/03/2021 CMP(C OMPRE HENSI VE METAB OLIC PANEL ) AST 15 units /L 13-39 Not Available [facility] (Lab) [address] [facility], [place], [address], 08/04/2021 02:48:16 08/04/19 22 08/03/2021 CMP(C OMPRE HENSI VE METAB OLIC PANEL ) bilirubin, total 0.7 mg/dL 0.2-1. 2 Not Available [facility] (Lab) [address] [facility], [place], [address], 08/04/2021 02:48:16 08/04/19 22 08/03/2021 TSH, REFLE X FREE T4 TSH 2.20 uIU/m L 0.30-5 .33 Not Available [facility] (Lab) [address] [facility], [place], [address], 08/04/2021 02:48:17 08/04/19 22 08/03/2021 HEMOG LOBIN A1C hemoglobin A1C 5.6 % 0-5.6 The Ameri can [employer]abe travis [employer] iatio n recom mends that a prima ry goal of thera py shoul d be a HBA1C of < 7% and that physi cians francisca d reeva luate the treat ment regim en in patie nts with HBA1C value s consi stent ly > 8%. <5.7% Aleta l 5.7 - 6.4% Incre ased risk for diabe travis >=6.5 % Diagn ostic of diabe travis <7.0% Goal of thera py >8.0% Actio n sugge sted Not Available [facility] (Lab) [address] [facility], [place], [address], 08/04/2021 02:48:17 08/04/19 22 08/03/2021 PROLA CTIN prolactin, total 14.40 NG/mL 4.79-2 3.30 This assay was perfo rmed using [employer] ratio n reage nts and test kits. Value s obtai chhaya with other assay metho ds or kits canno t be used inter guillen eably . Not Available [facility] (Lab) [address] [facility], [place], [address], 08/04/2021 02:48:17 08/04/19 22 08/03/2021 LH (LUTE NIZIN G HORMO NE) LH 3.9 mIU/m L This assay was perfo rmed using [employer] n reage nts and test kits. Value s obtai chhaya with other assay metho ds or kits canno t be used inter guillen eably . Femal es Mid-F ollic ular: 2.4-1 2.6 mIU/m L Mid-C ycle: 14.0- 95.6 mIU/m L Mid-L uteal : 1.0-1 1.4 mIU/m L Postm enopa use: 7.7-5 8.5 mIU/m L Not Available [facility] (Lab) [address] [facility], [place], [address], 08/04/2021 02:48:18 08/04/19 22 08/03/2021 FSH FSH 3.2 mIU/m L This assay was perfo rmed using [employer] n reage nts and test kits. Value s obtai chhaya with other assay metho ds or kits canno t be used inter wilmer james . Femal es Folli cular : 3.5-1 2.5 mIU/m L Ovula tion: 4.7-2 1.5 mIU/m L Lutea l: 1.7-7 .7 mIU/m L Postm enopa use: 25.8- 134.8 mIU/m L Not Available [facility] (Lab) [address] [facility], [place], [address], 08/04/2021 02:48:18 08/04/19 22 08/03/2021 IMAGE GUIDE D PAP, REFLE X HPV IF ASCUS ONLY image guided Pap, reflex HPV ASCUS only SEE RESULT S BELOW CASE REPOR T: Cytol ogy Gynec ologi cooper Repor t Case: [id number] Autho rodri lee Provi guillermina: Joaquin Clemente Colle cted: 08/03 1657 SCOREKEEPER Order ing Locat ion: [place] Patho log[facility] Recei antonietta: 08/04 0754 First Scree n: Cherelle Manning , [place] Rescr een: Halie Allen Speci men: Scree charleen Pap - Image d, Cervi x STATE MENT OF ADEQU ACY: Satis facto ry for evalu ation Trans forma tion zone compo nent prese nt FINAL DIAGN OSIS: Negat claudia for Intra epith elial Krista mcdonald or Dion howard (NIL) . Elect deja nieto d by Halie Allen on 2021 at 7:38 PM ----- ----- ----- ----- ----- ----- ----- ----- ----- ----- ----- ----- ----- ----- ----- ----- ----- ---- COMME NT: Note: This speci men was revie wed by a Cytot echno logis t and/o r Patho logis t (as indic ated in this repor t) after evalu ation using the Thinp rep Imagi ng Syste m. CLINI COOPER INFOR MATIO N: Menst rual Statu s: LMP (if appli cable ): Clini cooper Histo ry/Pr eviou s Pap: Type of Neopl pham (if appli cable ): Signi fican t Clini cooper Findi ngs: Other Histo ry: Hormo sharonda (if appli cable ): PAP EDUCA CINDA L NOTE: The Pap Test is a scree charleen test with an inher ent false negat claudia rate. Liqui d-bas ed sampl ing may decre ase, but will not elimi tg, false negat claudia resul ts. A negat claudia resul t does not precl ude the prese nce and/o r devel opmen t of disea se, since the prese nce of abnor mal cells in the sampl e depen ds on the locat ion of the lesio n and sampl ing techn ique. Bre nued regul ar scree charleen is the best metho d of cance r preve ntion . If repor timothy cytol ogic findi ng do not corre late with physi cooper and/o r histo rical findi ngs, furth er inves tigat ion is recom antonio d, as clini spike mancilla nted. Not Available [facility] (Lab) [address], [place], [address], 08/10/2021 20:40:32 08/04/19 22 08/03/2021 CT/GC (ISELA) , THINP REP VIAL chlamydia trachomatis, PCR Negati ve negati ve Not Available [facility] (Lab) [address] [place], [address], 08/10/2021 20:40:32 08/04/19 22 08/03/2021 CT/GC (ISELA) , THINP REP VIAL neisseria gonorrhoeae, PCR Negati ve negati ve Not Available [facility] (Lab) [address], [place], [address], 08/10/2021 20:40:32 08/04/19 22 08/03/2021 TRICH OMONA S VAGIN ANDRA (RRNA ) trichomonas vaginalis ribosomal RNA (rrna) Negati ve negati ve Not Available [facility] (Lab) [address] [facility], [place], [address], 08/10/2021 20:40:33 08/18/19 22 08/17/2021 CBC W/DIF F WBC 10.2 10'3/ uL 3.6-10 .2 Not Available [facility] (Lab) [address] [facility], [place], [address], 08/18/2021 09:31:50 08/18/19 22 08/17/2021 CBC W/DIF F RBC 5.50 10'6/ uL (based on docume nted legal sex) 4.10-5 .30 high Not Available [facility] (Lab) [address] [facility], [place], [address], 08/18/2021 09:31:50 08/18/19 22 08/17/2021 CBC W/DIF F HGB 13.3 g/dL (based on docume nted legal sex) 11.9-1 5.8 Not Available [facility] (Lab) [address] [facility], [place], [address], 08/18/2021 09:31:50 08/18/19 22 08/17/2021 CBC W/DIF F HCT 43.9 % (based on docume nted legal sex) 37.4-4 8.3 Not Available [facility] (Lab) [address] [facility], [place], [address], 08/18/2021 09:31:50 08/18/19 22 08/17/2021 CBC W/DIF F MCV 80.0 fL 82.0-9 9.0 low Not Available [facility] (Lab) [address] [facility], [place], [address], 08/18/2021 09:31:50 08/18/19 22 08/17/2021 CBC W/DIF F MCH 24.0 pg 27.0-3 3.0 low Not Available [facility] (Lab) [address], [place], [address], 08/18/2021 09:31:50 08/18/19 22 08/17/2021 CBC W/DIF F MCHC 30.0 g/dL 32.0-3 6.0 low Not Available [facility] (Lab) [address], [place], [address], 08/18/2021 09:31:50 08/18/19 22 08/17/2021 CBC W/DIF F RDW 16.0 % 11.0-1 5.0 high Not Available [facility] (Lab) [address], [place], [address], 08/18/2021 09:31:50 08/18/19 22 08/17/2021 CBC W/DIF F plt 367 10'3/ uL 150-45 0 Not Available [facility] (Lab) [address], [place], [address], 08/18/2021 09:31:50 08/18/19 22 08/17/2021 CBC W/DIF F MPV 10.5 fL 9.8-12 .7 Not Available [facility] (Lab) [address], [place], [address], 08/18/2021 09:31:50 08/18/19 22 08/17/2021 CBC W/DIF F NRBC's 0.00 % 0 Not Available [facility] (Lab) [address] [place], [address], 08/18/2021 09:31:50 08/18/19 22 08/17/2021 CBC W/DIF F absolute NRBCs 0.0 10'3/ uL 0 Not Available [facility] (Lab) [address] [place], [address], 08/18/2021 09:31:50 08/18/19 22 08/17/2021 CBC W/DIF F neutrophils 62.0 % 37.0-7 2.0 Not Available [facility] (Lab) [address], [place], [address], 08/18/2021 09:31:50 08/18/19 22 08/17/2021 CBC W/DIF F lymphocytes 26.0 % 16.0-4 8.0 Not Available [facility] (Lab) [address], [place], [address], 08/18/2021 09:31:50 08/18/19 22 08/17/2021 CBC W/DIF F monocytes 8.0 % 4.0-14 .0 Not Available [facility] (Lab) [address] [place], [address], 08/18/2021 09:31:50 08/18/19 22 08/17/2021 CBC W/DIF F eosinophils 2.0 % 0.0-9. 0 Not Available [facility] (Lab) [address], [place], [address], 08/18/2021 09:31:50 08/18/19 22 08/17/2021 CBC W/DIF F basophils 1.0 % 0.0-2. 0 Not Available [facility] (Lab) [address] [place], [address], 08/18/2021 09:31:50 08/18/19 22 08/17/2021 CBC W/DIF F immature granulocytes 1.0 % no define d refere nce range Not Available [facility] (Lab) [address] [place], [address], 08/18/2021 09:31:50 08/18/19 22 08/17/2021 CBC W/DIF F absolute neutrophils 6.5 10'3/ uL 1.1-6. 0 high Not Available [facility] (Lab) [address] [facility] [place] [place], [address], 08/18/2021 09:31:50 08/18/19 22 08/17/2021 CBC W/DIF F absolute lymphocytes 2.6 10'3/ uL 0.7-3. 4 Not Available [facility] (Lab) [address] [facility], [place], [address], 08/18/2021 09:31:50 08/18/19 22 08/17/2021 CBC W/DIF F absolute monocytes 0.8 10'3/ uL 0.3-1. 0 Not Available [facility] (Lab) [address] [facility], [place], [address], 08/18/2021 09:31:50 08/18/19 22 08/17/2021 CBC W/DIF F absolute eosinophils 0.2 10'3/ uL 0.0-0. 6 Not Available [facility] (Lab) [address] [facility], [place], [address], 08/18/2021 09:31:50 08/18/19 22 08/17/2021 CBC W/DIF F absolute basophils 0.1 10'3/ uL 0.0-0. 1 Not Available [facility] (Lab) [address] [facility], [place], [address], 08/18/2021 09:31:50 08/18/19 22 08/17/2021 CBC W/DIF F absolute immature granulocytes 0.10 10'3/ uL 0.00-0 .10 022 3:53 AM: P indic ates parti al resul ts on a panel have been relea sed. Addit ional resul ts will follo w. 3:53 AM: This resul t has been final verif ied. No addit ional or guillen ed resul ts are expec timothy. Not Available [facility] (Lab) [address] [facility], [place], [address], 08/18/2021 09:31:50 08/18/19 22 08/17/2021 NICOLE TIN / IRON / TRANS NICOLE N / TIBC iron 40 ug/dL 40-170 Not Available [facility] (Lab) [address] [place], [address], 08/18/2021 09:31:51 08/18/19 22 08/17/2021 NICOLE TIN / IRON / TRANS NICOLE N / TIBC transferrin 234 mg/dL 200-36 0 Not Available [facility] (Lab) [address] [place], [address], 08/18/2021 09:31:51 08/18/19 22 08/17/2021 NICOLE TIN / IRON / TRANS NICOLE N / TIBC ferritin 76.0 NG/mL 8.0-25 2.0 Not Available [facility] (Lab) [address] [facility], [place], [address], 08/18/2021 09:31:51 08/18/19 22 08/17/2021 NICOLE TIN / IRON / TRANS NICOLE N / TIBC TIBC 328 ug/dL 250-45 0 Not Available [facility] (Lab) [address] [place], [address], 08/18/2021 09:31:51 08/18/19 22 08/17/2021 NICOLE TIN / IRON / TRANS NICOLE N / TIBC iron saturation 12 % 20-55 low Not Available [facility] (Lab) [address] [place], [address], 08/18/2021 09:31:51 08/18/19 22 08/17/2021 VITAM IN B12 / FOLAT E PANEL vitamin B12 329 pg/mL 180-91 4 Aleta l Range : 180-9 14 pg/mL . Indet ermin ate Range : 145-1 80 pg/mL . Defic ient Range : <=145 pg/mL . Not Available [facility] (Lab) [address] [place], [address], 08/18/2021 09:31:51 08/18/19 22 08/17/2021 VITAM IN B12 / FOLAT E PANEL folate, serum 14.5 NG/mL 6.0-20 .0 Not Available [facility] (Lab) [address] [place], [address], 08/18/2021 09:31:51 08/18/19 22 08/17/2021 VAGIN ITIS/ VAGIN OSIS, DNA PROBE juan jose sp. detection, direct probe Negati ve negati ve Not Available [facility] (Lab) [address] [facility], [place], [address], 08/18/2021 15:23:32 08/18/19 22 08/17/2021 VAGIN ITIS/ VAGIN OSIS, DNA PROBE gardnerella vag. detection, direct probe Negati ve negati ve Not Available [facility] (Lab) [address] [place], [address], 08/18/2021 15:23:32 08/18/19 22 08/17/2021 VAGIN ITIS/ VAGIN OSIS, DNA PROBE trichomonas vag. detection, direct probe Negati ve negati ve Not Available [facility] (Lab) [address] [place], [address], 08/18/2021 15:23:32 Result Notes None recorded. Procedures Surgical History Date Name Laterality Status Provider Name and Address Organization Details Recorded Time 2 Date of Last Pap Smear completed [facility] 08/17/2021 12:14:26 6 procedure on ear completed [facility] 08/03/2021 12:54:55 Imaging Results None recorded. Procedure Notes None recorded. Medical Equipment None Reported. Allergies No known drug allergies Medications Name Sig Start Date Stop Date Status Note LastModified by Organization Details LastModified Time clindamycin HCl 300 mg capsule TAKE 1 CAPSULE BY MOUTH THREE TIMES A DAY 08/03 completed Not Available Not Available Not Available loperamide 2 mg capsule TAKE 1 CAPSULE BY MOUTH 4 TIMES A DAY NEEDED 08/03 completed Not Available Not Available Not Available ibuprofen 800 mg tablet TAKE 1 TABLET BY MOUTH 3 TIMES A DAY FOR 15 DAYS NEEDED FOR PAIN 08/03 completed Not Available Not Available Not Available meloxicam 15 mg tablet TAKE 1 TABLET BY MOUTH EVERY DAY IN THE MORNING 08/03 completed Not Available Not Available Not Available sulfamethoxa zole 800 mg-trimethop rim 160 mg tablet TAKE 1 TABLET BY MOUTH TWICE A DAY 08/03 completed Not Available Not Available Not Available aspirin 81 mg chewable tablet TAKE 1 TABLET BY MOUTH EVERY DAY 08/17 completed Not Available Not Available Not Available dicyclomine 10 mg capsule TAKE 1 CAPSULE BY MOUTH THREE TIMES A DAY 08/03 completed Not Available Not Available Not Available escitalopram 10 mg tablet TAKE 1 TABLET BY MOUTH EVERY DAY active Not Available Not Available No t Available Vitals Date Recorded Body height Body mass index (BMI) Body weight Systolic blood pressure Diastolic blood pressure Provider Name and Address Organization Details Last Updated DateTime 08/03/2021 165.1 cm 34.8 kg/m2 05770.81 g 122 mm[Hg] 76 mm[Hg] [facility] 2 12:50:50 Date Recorded Body height Body mass index (BMI) Body weight Systolic blood pressure Diastolic blood pressure Provider Name and Address Organization Details Last Updated DateTime 08/17/2021 165.1 cm 34.8 kg/m2 11365.81 g 100 mm[Hg] 68 mm[Hg] [facility] 2 12:14:05 Social History Question Answer Notes LastModified by Organizat ion Details LastModified Time Tobacco Smoking Status Never Smoker [facility] 08/03/2021 12:54:33 What Is Your Level Of Alcohol Consumption? Occasional Information not available 08/03/2021 Are You Blind Or Do You Have Difficulty Seeing? No Information not available 08/03/2021 What Is Your Level Of Caffeine Consumption? Occasional Information not available 08/03/2021 Are You Deaf Or Do You Have Serious Difficulty Hearing? No Information not available 08/03/2021 What Type Of Diet Are You Following? REGULAR Information not available 08/03/2021 Do You Use Your Seat Belt Or Car Seat Routinely? Yes Information not available 08/03/2021 Are You Sexually Active? Yes Information not available 08/03/2021 Do You Have Smoke And Carbon Monoxide Detectors In Your Home? Yes Information not available 08/03/2021 Do You Feel Stressed (tense, Restless, Nervous, Or Anxious, Or Unable To Sleep At Night)? [id number] Information not available 08/03/2021 Do You Use Any Illicit Or Recreational Drugs? No Information not available 08/03/2021 Do You Use Sunscreen Routinely? Yes Information not available 08/03/2021 Sex: Unknown Functional Status Question Answer Note LastModified by Organizat ion Details LastModified Time Do you have difficulty walking or climbing stairs? No Information not available 08/03/2021 Are you able to walk? YESWOREST Information not available 08/03/2021 Are you able to care for yourself? Yes Information not available 08/03/2021 Do you have difficulty dressing or bathing? No Information not available 08/03/2021 What is your exercise level? Occasional Information not available 08/03/2021 Mental Status None recorded. Family History Relationship Description Onset Age of this Age Resolved Age Notes LastModified by Organization Details LastModified Time Mother Anemia Not available 12:53:28 Mother Asthma Not available 12:53:33 Maternal Grandmother Malignant tumor of breast Not available 2021 12:53:40 Paternal Grandmother Diabetes mellitus Not available 2021 12:53:47 Maternal Aunt Infertile Not francisco ilable 08/03/2021 12:54:05 Medical History Condition Response Anxiety Disorder Y Depression/ depression Y Gynecological History Statement/Question Response Abnormal Pap N Flow Light Date of LMP 08/13/2021 Was last menstrual period normal Y STIs/STDs N HPV Vaccine N Duration of Flow (days) 3 Current Control Method None Are cycles usually normal Y Sexually Active? Y Menses Monthly Y Age of first menstrual cycle 15 Date of Last Pap Smear 08/03/2021 Sexual Problems? N LMP Approximate Obstetrics History GPAL:G 0 P 0 0 0 0 Type Value Living 0 Total 0 Past Encounters Encounter ID Performer Location Encounter Start Date Encounter Closed Date Diagnosis/Indication Diagnosis SNOMED-CT Code Diagnosis ICD10 Code Diagnosis Note [id number] Joselyn Bruce , [facility] [address] [address] 08/03/2021 12:12:45 08/03/2021 13:53:08 Gynecologic examination 07884751 Z01.419 Take Calcium with Vitamin D 1200mg daily if not receiving in daily diet. It is strongly advised to have an annual flu shot and up can obtain at most pharmacies . If you have not had a TDap shot in the last 10 years you should obtain one as well. Discussed with patient & provided with informatio n regarding Gardisil vaccine to prevent the 4 strains for HPV that cause cervical cancer if under age 26. Encourage safe sexual practices, to use condoms and limit partners if not already in a monogamous relationsh ip. Do monthly self breast exams. Have mammogram yearly or every other year depending on family history. BRCA testing is now available for patients with strong genetic history of female cancer. If interested contact the office. Engage in daily exercise of low impact aerobic exercise 45-60 minutes 4-5 times weekly. Avoid tobacco and illicit drugs as well as using moderation with alcohol intake less than 1-2 8 oz beverages daily. This lifestyle behavior pattern will lead to less health conditions and longer life span. If BMI greater than 25 weight watchers or dietary consult advised. Patient received above instructio ns, and questions have been answered. If you have any questions please call or respond to this email. Patient was made aware of the patient portal and may obtain a paper copy of today's plan if desired. Pap sent STD Screen sent Genetic Screen discussed Colon Screen na Dexa Screen na Routine Labs ordered Irregular periods 429534 07 N92.6 Updating labs to assess periods/fe rtility.Us ed no control with her last partner she was with x 3yrs and never got .P eriods occur most every month but anywhere from 28-32 daysLastin g 3-5 days maxModerat e to light flowD/C Depo in 2015. [id number] DENISHA [facility] [address] [address] 08/17/2021 11:38:45 08/17/2021 12:56:21 Irregular periods 58689032 N92.6 Reviewed labs todayAdvis ed dietary/nu tritional/ activity changes to help HgbA1c values which can help ovulatory function.H aving regular monthly cycles between 28-32 daysAMH is a bit high.Tara carrasco might need assistance if ready to get .P artner (if still with them) will need to be tested sperm testFor now will monitorLet us know if cycles are becoming more ameorrhea or goal is . Will update labs to ensure no anemias presentRef er Ailyn Raymond fertility if ready to get . Time spent in visit is a total of 15 mins with at least 50% of visit consisting of counseling and review of plan of care. Dyspareunia [id number] N94 .10 Will send swab & ensure no infection. STD screen was wnl Health Concerns Section Related Observation LastModified by Organization Detai ls LastModified Time None Recorded Concern Status LastModified by Organization Details LastModified Time None Recorded Advance Directives Directive None Recorded Payers Encounter Date Sequence Insurance Name Policy Number Policy Hamm Covered Member ID Hamm Member ID Guarantor Name 08/03/2021 1 [facility] (MEDICAID HMO) [id number] Amelia Martínez [id number] Amelia Tucker 08/17/2021 1 [facility] (MEDICAID HMO) [id number] Amelia Martínez [id number] Amelia Tucker Notes Date Note Type Note Provider Name and Address Organization Details Recorded Time 08/03/2021 text/html Annual GYNReport ed bypatient.Menstrua l cycle:Irregular cycle intervals Urinary symptoms:No hematuria; No incontinence Vulva:No genital lesion Vagina:Normal vaginal discharge Breast:No breast pain; No breast lump; No nipple discharge Current Contraception:Sati sfied with current contraception; control not practiced; Requests testing for sexually transmitted infections Sexual complaints:No sexual complaints; No pain during intercourse; Normal libido Menopausal Symptoms:No menopausal symptoms; Normal vaginal lubrication Psychological symptoms:No depression; No anxiety; No PMDD Preventive measures:Encourage self breast examination; Encourage regular exercise; Encourage no tobacco use; Encourage regular mammograms starting age 40; Followed with Q3 year pap smear and high risk HPV typing Joselyn Bruce [facility] [address], [place], [address], [facility] 08/03/2021 13:30:47 08/17/2021 text/html Here to review labs/status/comple te additional labs/swab. Joselyn Bruce [facility] [address], [place], [address], [facility] 08/17/2021 12:55:01 OBGyn Episode No OBEpisode recorded.
--- OUTSIDE RECORDS SUMMARY | 2024-07-24 13:25 | XMS_ITS | CONTINUITY OF CARE DOCUMENT ---
Author Name arnie gaitan Address Unknown Organization [facility] [address] Address [address] [address] [place] [address] Phone [phone] Care Team Providers Care Hypoid Gear Tester Name Role Phone Hilton Lynch MD Unavailable Hilton Lynch MD Unavailable [phone] INSURANCE PROVIDERS Payer name Policy type / Coverage type [place] red democrat [id number] MEDICA[place] Medicaid [id number]
--- OUTSIDE RECORDS SUMMARY | 2024-07-24 13:25 | XMS_ITS | Data Portability ---
Author Organization [place] [facility], Main Office Address [address] [place] [address] Care Team Providers Care Ferryboat Operator Cable Name Role Phone OKSANA TAN Primary Care Provider [phone] BHAVIK HOWE Neurologist Assessment Encounter Date Assessment Date Assessment LastModified by Organization Details LastModified Time 02/29/2024 02/29/2024 01/04/2023: LDL 129 11/13/2023: MCV 78.8L LDL 101 Not available 02/29/2024 11:09:54 06/03/2024 06/03/2024 01/04/2023: LDL 129 11/13/2023: MCV 78.8L LDL 101 02/29/2024: VIT D 27.9 LDL 110 MCV 78.6L Not available 06/03/2024 09:54:22 07/15/2024 07/15/2024 01/04/2023: LDL 129 11/13/2023: MCV 78.8L LDL 101 02/29/2024: VIT D 27.9 LDL 110 MCV 78.6L 06/03/2024: MCV 79.5L Not available 07/15/2024 12:56:01 Plan of Treatment Reminders Order Date Submit Date Provider Last Modified By Organization Details Last Modified Time Details Appointments New Patient 15 2024 10:45A Laly Workman MD Not available Not available Not available Follow Up 15 2024 09:00A Laly anthony MD Not available Not available Not available Lab lipid panel, serum [address] (Lab), [address] [place], [address], 07/15/2024 12:46:19 CBC w/ auto diff [address] (Lab), [address] [place], [address], 07/15/2024 12:46:19 TSH, serum or plasma [address] (Lab), [address] [place], [address], 07/15/2024 12:46:19 CMP, serum or plasma [address] (Lab), [address] [place], [address], 07/15/2024 12:46:19 vitamin D, 25-hydro xy, total, serum [address] (Lab), [address] [place], [address], 07/15/2024 12:46:18 vitamin B12 + folate, serum or blood [address] (Lab), [address] [place], [address], 07/15/2024 12:46:19 lipid panel, serum 2024 025 [facility] (Lab), [address] [place], [address], 06/03/2024 13:28:27 CBC w/ auto diff 2024 025 [facility] (Lab), [address] [place], [address], 06/03/2024 12:41:58 TSH, serum or plasma 2024 025 [facility] (Lab), [address] [place], [address], 06/03/2024 13:59:10 CMP, serum or plasma 2024 025 [facility] (Lab), [address] [place], [address], 06/03/2024 13:28:43 vitamin D, 25-hydro xy, total, serum [address] (Lab), [address] [place], [address], 06/03/2024 11:03:06 vitamin B12 + folate, serum or blood [address] (Lab), [address] [place], [address], 06/03/2024 11:03:06 lipid panel, serum 2023 024 [facility] (Lab), [address] [place], [address], 02/29/2024 13:45:46 CBC w/ auto diff 2023 024 [facility] (Lab), [address] [place], [address], 02/29/2024 13:22:09 TSH, serum or plasma 2023 024 [facility] (Lab), [address] [place], [address], 02/29/2024 14:14:46 CMP, serum or plasma 2023 024 [facility] (Lab), [address] [place], [address], 02/29/2024 13:45:51 vitamin D, 25-hydro xy, total, serum [address] (Lab), [address] [place], [address], 02/29/2024 11:30:49 vitamin B12 + folate, serum or blood [address] (Lab), [address] [place], [address], 02/29/2024 11:30:49 Referral neurolog ist referral - Please call patient to schedule an appointm ent. Thank you. 2024 025 JAYSON Howe MD, [facility] , [address], [place], [address], 07/22/2024 13:00:42 neurolog ist referral - Please call patient to schedule an appointm ent. Thank you. 2024 025 JAYSON Howe MD, [facility] , [address], [place], [address], 07/16/2024 12:15:28 obstetri cassandra and gynecolo gist referral - Please call patient to schedule an appointm ent. Thank you. 2024 025 JAYSON Roberts MD, [address], [address], [place], [address], 07/16/2024 11:20:[address] referral - Please call patient to schedule an appointm ent. Thank you. 2024 025 [facility], [address], [place], [address], 07/17/2024 17:45:29 pulmonol ogist referral - Please call patient to schedule an appointm ent. Thank you. 2024 025 JAYSON Villatoro CLUB CAR ATTENDANT-C, [address], [address], [place], [address], 07/16/2024 11:35:22 psychiat rist referral - Please call patient to schedule an appointm ent. Thank you. 2024 025 CONI Mcnally Sespencer Pmhnp, [address] [facility] [address], [place], [address], 07/22/2024 14:24:[address] referral - Please call patient to schedule an appointm ent. Thank you. 2024 025 [email or web address] Harvey Franciscobekah DPM, [address] [facility], [address], [place], [address], 07/16/2024 11:18:21 neurolog ist referral - Please call patient to schedule an appointm ent. Thank you. 2024 025 JAYSON Howe MD, [address] [facility] , [address], [place], [address], 06/17/2024 18:50:48 neurolog ist referral - Please call patient to schedule an appointm ent. Thank you. 2024 025 JAYSON Howe MD, [address] [facility] , [address], [place], [address], 06/14/2024 18:14:49 obstetri cassandra and gynecolo gist referral - Please call patient to schedule an appointm ent. Thank you. 2024 025 JAYSON Roberts MD, [address] [facility] [address], [address], [place], [address], 06/04/2024 16:40:41 pulmonol ogist referral - Please call patient to schedule an appointm ent. Thank you. 2024 025 JAYSON FISCHERP-C, [address], [address], [place], [address], 06/04/2024 16:55:17 psychiat rist referral - Please call patient to schedule an appointm ent. Thank you. 2024 025 CONI Ramirez Pmhnp, [address] [facility] [address], [place], [address], 06/05/2024 10:21:[address] referral - Please call patient to schedule an appointm ent. Thank you. 2024 025 LITOLOLIFormerly [facility] [place] [facility] - [facility], [address] [facility], [address], [place], [address], 06/17/2024 18:47:52 neurolog ist referral 2023 024 [email or web address] Bhavik Howe MD, [address] [facility] , [address], [place], [address], 03/01/2024 15:57:22 neurolog ist referral 2023 024 Bhavik Howe MD, [address] [facility] , [address], [place], [address], 03/01/2024 15:56:21 obstetri cassandra and gynecolo gist referral - Please call patient to schedule . 2023 024 [email or web address] Toyin Roberts MD, [address] [facility] [address], [address], [place], [address], 06/06/2024 08:44:27 pulmonol ogist referral - Please call patient to schedule . 2023 024 Yeny Shauna CLUB CAR ATTENDANT-C, [address], [address], [place], [address], 03/13/2024 16:39:06 psychiat rist referral 2023 024 [email or web address] Dali Ramirez Pmhnp, [address] [facility] [address], [place], [address], 06/06/2024 08:44:[address] referral - Please call patient to schedule . 2023 024 [email or web address] [facility] Orthopedic Surgery - [facility], [address] [facility], [address], [place], [address], 06/06/2024 08:44:27 Procedures None recorded . Surgeries None recorded . Imaging XR, shoulder , 2 or more view - stat hold and call dr maura mello 2024 025 [facility] (Radiology), [address] [place], [address], 06/03/2024 11:56:21 XR, cervical spine, 2 or 3 view - stat hold and call dr maura mello 2024 025 [facility] (Radiology), [address] [place], [address], 06/03/2024 11:29:50 Medication Orders meloxica m 7.5 mg tablet 2024 025 [facility][id number], [address] , [place], [address], 07/15/2024 11:44:32 cycloben zaprine 10 mg tablet 2024 025 [id number], [address] [place], [address], 07/15/2024 11:44:28 Medrol (Clarence) 4 mg tablets in a dose pack 2024 025 [id number], [address], [place], [address], 06/03/2024 09:32:31 ciproflo xacin 0.3 %-dexame thasone 0.1 % ear drops,[facility] spension 2024 [email or web address] [id number], [address], [place], [address], 06/03/2024 09:32:24 trazodon e 50 mg tablet [email or web address]/[facility]armacy #[id number], [address], [place], [address], 06/03/2024 09:32:57 Patient TargetsNo targets recorded. Patient Instructions Encounter Date Encounter Id Patient Instructions Last Modified By Organization Details Last Modified Time 04/18/2024 [id number] given her persistent symptoms, we will refer to Dr. Kapadia to be established and managed as Dr. Page is not currently available. Prescribed Medrol for inflammation, take as directed. Also prescribed Ciprodex to be applied to the affected ear twice a day for 7 days. If symptoms continue to persist or worsen after completion of treatment, advised to return to the office for further evaluation [email or web address] Not available 04/18/2024 16:14:31 06/10/2024 [id number] the perforation has evidently healed and she will return as needed [email or web address] Not available 06/10/2024 11:52:45 Reason for Referral [employer] [facility] Referral for Gynecologic examination Please call patient to schedule. Referring Physician: Oksana Tan, Internal Medicine, Encounter Date: 02/29/2024 Equipment Washer Referral for Pain in left foot Please call patient to schedule. Referring Physician: Oksana Tan Internal Medicine, Encounter Date: 02/29/2024 Neurologist Referral for Res ting tremor Referring Physician: Oksana Tan Internal Medicine, Encounter Date: 02/29/2024 Ferryboat Operator Cable Referral for O bstructive sleep apnea syndrome Please call patient to schedule. Referring Physician: Oksana Tan Internal Medicine, Encounter Date: 02/29/2024 Neurologist Referral for Hea dache Referring Physician: Oksana Tan Internal Medicine, Encounter Date: 02/29/2024 Psychiatrist Referral for Ge neralized anxiety disorder Referring Physician: Oksana Tan Internal Medicine, Encounter Date: 02/29/2024 [employer] [facility] Referral for Gynecologic examination Please call patient to schedule an appointment. Thank you. Referring Physician: Oksana Tan Internal Medicine, Encounter Date: 06/03/2024 Equipment Washer Referral for Pain in left foot Please call patient to schedule an appointment. Thank you. Referring Physician: Oksana Tan Internal Medicine, Encounter Date: 06/03/2024 Neurologist Referral for Res ting tremor Please call patient to schedule an appointment. Thank you. Referring Physician: Oksana Tan Internal Medicine, Encounter Date: 06/03/2024 Ferryboat Operator Cable Referral for O bstructive sleep apnea syndrome Please call patient to schedule an appointment. Thank you. Referring Physician: Oksana Tan Internal Medicine, Encounter Date: 06/03/2024 Neurologist Referral for Hea dache Please call patient to schedule an appointment. Thank you. Referring Physician: Oksana Tan Internal Medicine, Encounter Date: 06/03/2024 Psychiatrist Referral for Ge neralized anxiety disorder Please call patient to schedule an appointment. Thank you. Referring Physician: Oksana Tan Internal Medicine, Encounter Date: 06/03/2024 [employer] t Referral for Gynecologic examination Please call patient to schedule an appointment. Thank you. Referring Physician: Oksana Tan Internal Medicine, Encounter Date: 07/15/2024 Equipment Washer Referral for Pain in left foot Please call patient to schedule an appointment. Thank you. Referring Physician: Oksana Tan Internal Medicine, Encounter Date: 07/15/2024 Neurologist Referral for Res ting tremor Please call patient to schedule an appointment. Thank you. Referring Physician: Oksana Tan Internal Medicine, Encounter Date: 07/15/2024 Ferryboat Operator Cable Referral for O bstructive sleep apnea syndrome Please call patient to schedule an appointment. Thank you. Referring Physician: Oksana Tan, Internal Medicine, Encounter Date: 07/15/2024 Neurologist Referral for Hea dache Please call patient to schedule an appointment. Thank you. Referring Physician: Oksana Tan Internal Medicine, Encounter Date: 07/15/2024 Psychiatrist Referral for Ge neralized anxiety disorder Please call patient to schedule an appointment. Thank you. Referring Physician: Oksana Tan Internal Medicine, Encounter Date: 07/15/2024 Director Of Admissions Referral for Diarrhea Please call patient to schedule an appointment. Thank you. Referring Physician: Oksana Tan Internal Medicine, Encounter Date: 07/15/2024 Results Created Date Observation Date Name Description Value Unit Range Abnormal Flag Note LastModifiedBy Organization Detail LastModifiedTime 02/29/20 24 02/29/2024 CBC/C OMPLE TE BLD COUNT W/DIF F white blood cells 9.3 x10'3 /uL 4.2-10 .8 Not Available [facility] (Lab) [address] [place], [address], 02/29/2024 13:22:09 02/29/20 24 02/29/2024 CBC/C OMPLE TE BLD COUNT W/DIF F red blood cells 5.38 x10'6 /uL 3.80-5 .20 high Not Available [facility] (Lab) [address] [place], [address], 02/29/2024 13:22:09 02/29/20 24 02/29/2024 CBC/C OMPLE TE BLD COUNT W/DIF F hemoglobin 13.5 g/dL 12.0-1 5.6 Not Available [facility] (Lab) [address] [place], [address], 02/29/2024 13:22:09 02/29/20 24 02/29/2024 CBC/C OMPLE TE BLD COUNT W/DIF F hematocrit 42.3 % 35.7-4 5.7 Not Available [facility] (Lab) [address] [place], [address], 02/29/2024 13:22:09 02/29/2002/29/2024 CBC/C OMPLE TE BLD COUNT W/DIF F mean red cell volume 78.6 fL 82.0-9 9.0 low Not Available [facility] (Lab) [address] [place], [address], 02/29/2024 13:22:09 02/29/20 24 02/29/2024 CBC/C OMPLE TE BLD COUNT W/DIF F mean red cell hemoglobin 25.1 pg 27.0-3 3.0 low Not Available [facility] (Lab) [address] [place], [address], 02/29/2024 13:22:09 02/29/20 24 02/29/2024 CBC/C OMPLE TE BLD COUNT W/DIF F mean RBC HGB concentratio n 31.9 g/dL 31.0-3 6.0 Not Available [facility] (Lab) [address] [place], [address], 02/29/2024 13:22:09 02/29/20 24 02/29/2024 CBC/C OMPLE TE BLD COUNT W/DIF F red cell distribution width 15.4 % 11.8-1 5.5 Not Available [facility] (Lab) [address] [place], [address], 02/29/2024 13:22:09 02/29/20 24 02/29/2024 CBC/C OMPLE TE BLD COUNT W/DIF F platelets 338 x10'3 /uL 150-40 0 Not Available [facility] (Lab) [address] [place], [address], 02/29/2024 13:22:09 02/29/20 24 02/29/2024 CBC/C OMPLE TE BLD COUNT W/DIF F mean platelet volume 10.3 fL 9.0-12 .4 Not Available [facility] (Lab) [address] [place], [address], 02/29/2024 13:22:09 02/29/20 24 02/29/2024 CBC/C OMPLE TE BLD COUNT W/DIF F neutrophils 68.0 % 39.0-7 2.0 Not Available [facility] (Lab) [address] [place], [address], 02/29/2024 13:22:09 02/29/20 24 02/29/2024 CBC/C OMPLE TE BLD COUNT W/DIF F lymphocytes 22.7 % 16.0-4 7.0 Not Available [facility] (Lab) [address] [place], [address], 02/29/2024 13:22:09 02/29/20 24 02/29/2024 CBC/C OMPLE TE BLD COUNT W/DIF F monocytes 7.4 % 5.0-12 .0 Not Available [facility] (Lab) [address] [place], [address], 02/29/2024 13:22:09 02/29/20 24 02/29/2024 CBC/C OMPLE TE BLD COUNT W/DIF F eosinophils 1.1 % 1.0-7. 0 Not Available [facility] (Lab) [address] [place], [address], 02/29/2024 13:22:09 11/14/20 24 02/29/2024 CBC/C OMPLE TE BLD COUNT W/DIF F basophils 0.4 % 0.0-2. 0 Not Available [facility] (Lab) [address] [place], [address], 02/29/2024 13:22:09 02/29/20 24 02/29/2024 CBC/C OMPLE TE BLD COUNT W/DIF F immature granulocytes 0.4 % 0.00-0 .50 Not Available [facility] (Lab) [address] [place], [address], 02/29/2024 13:22:09 02/29/2002/29/2024 CBC/C OMPLE TE BLD COUNT W/DIF F neutrophils, absolute count 6.29 x10'3 /uL 1.5-8. 0 Not Available [facility] (Lab) [address] [place], [address], 02/29/2024 13:22:09 02/29/20 24 02/29/2024 CBC/C OMPLE TE BLD COUNT W/DIF F lymphocytes, absolute count 2.10 x10'3 /uL 1.07-3 .43 Not Available [facility] (Lab) [address] [place], [address], 02/29/2024 13:22:09 02/29/20 24 02/29/2024 CBC/C OMPLE TE BLD COUNT W/DIF F monocytes, absolute count 0.68 x10'3 /uL 0.29-0 .99 Not Available [facility] (Lab) [address] [place], [address], 02/29/2024 13:22:09 02/29/20 24 02/29/2024 CBC/C OMPLE TE BLD COUNT W/DIF F eosinophils, absolute count 0.10 x10'3 /uL 0.02-0 .53 Not Available [facility] (Lab) [address] [place], [address], 02/29/2024 13:22:09 02/29/20 24 02/29/2024 CBC/C OMPLE TE BLD COUNT W/DIF F basophils, absolute count 0.04 x10'3 /uL 0.01-0 .08 Not Available [facility] (Lab) [address] [place], [address], 02/29/2024 13:22:09 02/29/20 24 02/29/2024 CBC/C OMPLE TE BLD COUNT W/DIF F immature granulocytes ,absolute 0.04 x10'3 /uL 0.00-0 .05 Not Available [facility] (Lab) [address] [place], [address], 02/29/2024 13:22:09 02/29/20 24 02/29/2024 CBC/C OMPLE TE BLD COUNT W/DIF F nucleated red blood cells 0.0 % -0 Not Available [facility] (Lab) [address] [place], [address], 02/29/2024 13:22:09 02/29/20 24 02/29/2024 CBC/C OMPLE TE BLD COUNT W/DIF F NRBC# 0.00 x10'3 /uL Not Available [facility] (Lab) [address] [place], [address], 02/29/2024 13:22:09 02/29/20 24 02/29/2024 LIPID PANEL cholesterol 174 mg/dL 140-19 9 NIH RAMAKRISHNA NSUS RECOM MENDA TION FOR FLAKITO STERO L: ADULT CHILD LOW RISK: <200 <170 BORDE RLINE : <200- 239 ----- HIGH RISK: >240 >200 Not Available [facility] (Lab) [address] [place], [address], 02/29/2024 13:45:46 02/29/20 24 02/29/2024 LIPID PANEL triglyceride s 86 mg/dL 0-150 NIH RAMAKRISHNA NSUS REPOR T RECOM MENDA TION FOR TRIGL YCERI BC: ADULT CHILD LOW RISK: <150 ----- BODER LINE: 150-1 99 ----- HIGH RISK: >200 ----- Not Available [facility] (Lab) [address] [place], [address], 02/29/2024 13:45:46 02/29/2002/29/2024 LIPID PANEL HDL cholesterol 47 mg/dL 40- Not Available [facility] (Lab) [address] [place], [address], 02/29/2024 13:45:46 02/29/2002/29/2024 LIPID PANEL LDL cholesterol, calculated 110 mg/dL 0-130 NIH RAMAKRISHNA NSUS REPOR T RECOM MENDA TIONS FOR LDL: ADULT CHILD LOW RISK <130 <110 (OPTI MAL LDL) <100 ----- BORDE RLINE : 130-1 59 ----- HIGH RISK: >160 >130 A TRIGL YCERI DE RESUL T >400 INVAL IDATE S THE CALCU LATIO N FOR LDL FRACT IONAT ION - THE LDL RESUL T WILL NOT BE REPOR TRINI. Not Available [facility] (Lab) [address] [place], [address], 02/29/2024 13:45:46 02/29/20 24 02/29/2024 COMP MET PANEL /LIVE R sodium 135 mmol/ L 137-14 5 low Not Available [facility] (Lab) [address] [place], [address], 02/29/2024 13:45:51 02/29/2002/29/2024 COMP MET PANEL /LIVE R potassium 4.1 mmol/ L 3.5-5. 1 Not Available [facility] (Lab) [address] [place], [address], 02/29/2024 13:45:51 02/29/2002/29/2024 COMP MET PANEL /LIVE R chloride 105 mmol/ L 98-107 Not Available [facility] (Lab) [address] [place], [address], 02/29/2024 13:45:51 02/29/20 24 02/29/2024 COMP MET PANEL /LIVE R carbon dioxide 23 mmol/ L 22-30 Not Available [facility] (Lab) [address] [place], [address], 02/29/2024 13:45:51 02/29/2002/29/2024 COMP MET PANEL /LIVE R anion gap 11.1 mmol/ L 14-22 low Not Available [facility] (Lab) [address] [place], [address], 02/29/2024 13:45:51 02/29/20 24 02/29/2024 COMP MET PANEL /LIVE R glucose 80 mg/dL 70-99 Not Available [facility] (Lab) [address] [place], [address], 02/29/2024 13:45:51 02/29/20 24 02/29/2024 COMP MET PANEL /LIVE R BUN 14 mg/dL 8-19 Not Available [facility] (Lab) [address] [place], [address], 02/29/2024 13:45:51 02/29/2002/29/2024 COMP MET PANEL /LIVE R creatinine 0.69 mg/dL 0.66-1 .25 Not Available [facility] (Lab) [address] [place], [address], 02/29/2024 13:45:51 02/29/2002/29/2024 COMP MET PANEL /LIVE R GFR >60 Refer ence Range : [place] ge GFR Healt hy Adult : >60 mL/mi n/1.7 3 m2 Chron ic Kidne y Disea se: 15-60 mL/mi n/1.7 3 m2 Kidne y Failu re: <15/m L/min /1.73 m2 www.n iddk. nih.g ov The MDRD study equat ion has not been valid ated in child ajay <18 years of age; pregn ant women ; the elder ly >85 years of age; or in some racia l or ethni c subgr oups, such as Hispa nics. Outsi de the valid ated jeison eters , estim ated GFR is less accur ate, requi ring clini cooper judgm ent on a case- by-ca se basis . Clini cooper inter preta tion for other races and ages must be made by the clini cassandra. The MDRD study equat ion has not been valid ated for the evalu ation of serum creat inine relat ed to nutri ella l statu s or medic ation usage . For perso ns <18 years of age, a pedia tric GFR calcu lator is avail able on the [facility] websi te: https ://marco a randall.alex lizama.o rg/pr ofess ional s/kdo qi/gf r_cal culat or Not Available [facility] (Lab) [address] [place], [address], 02/29/2024 13:45:51 02/29/20 24 02/29/2024 COMP MET PANEL /LIVE R alkaline phosphatase 70 U/L 38-126 Not Available [facility] (Lab) [address] [place], [address], 02/29/2024 13:45:51 02/29/20 24 02/29/2024 COMP MET PANEL /LIVE R alanine aminotransfe rase 29 U/L 0-35 Not Available [facility] (Lab) [address] [place], [address], 02/29/2024 13:45:51 02/29/20 24 02/29/2024 COMP MET PANEL /LIVE R aspartate aminotransfe rase 29 U/L 15-37 Not Available [facility] (Lab) [address] [place], [address], 02/29/2024 13:45:51 02/29/20 24 02/29/2024 COMP MET PANEL /LIVE R bilirubin, total 0.80 mg/dL 0.20-1 .30 Not Available [facility] (Lab) [address] [place], [address], 02/29/2024 13:45:51 02/29/20 24 02/29/2024 COMP MET PANEL /LIVE R bilirubin, conjugated (direct) 0.00 mg/dL 0.00-0 .30 Not Available [facility] (Lab) [address] [place], [address], 02/29/2024 13:45:51 02/29/2002/29/2024 COMP MET PANEL /LIVE R biliurubin,u ncong. (indirect) 0.50 mg/dL 0.00-1 .1 Not Available [facility] (Lab) [address] [place], [address], 02/29/2024 13:45:51 02/29/20 24 02/29/2024 COMP MET PANEL /LIVE R calcium 9.5 mg/dL 8.4-10 .2 Not Available [facility] (Lab) [address] [place], [address], 02/29/2024 13:45:51 02/29/20 24 02/29/2024 COMP MET PANEL /LIVE R total protein 6.9 g/dL 6.3-8. 2 Not Available [facility] (Lab) [address] [place], [address], 02/29/2024 13:45:51 02/29/20 24 02/29/2024 COMP MET PANEL /LIVE R albumin 4.1 g/dL 3.4-5. 0 Not Available [facility] (Lab) [address] [place], [address], 02/29/2024 13:45:51 02/29/20 24 02/29/2024 COMP MET PANEL /LIVE R globulin 2.8 g/dL 2.6-4. 2 Not Available [facility] (Lab) [address] [place], [address], 02/29/2024 13:45:51 02/29/20 24 02/29/2024 COMP MET PANEL /LIVE R A/G ratio 1.5 ratio 1.0-2. 0 Not Available [facility] (Lab) [address] [place], [address], 02/29/2024 13:45:51 02/29/20 24 02/29/2024 VITAM IN D 25-HY DROXY vd25oh 27.9 NG/mL 30-100 low Vitam in D Statu s: Defic ient: <20 ng/mL Insuf ficie nt: 20-29 ng/mL Suffi cient : 30-10 0 ng/mL Not Available [facility] (Lab) [address] [place], [address], 02/29/2024 13:58:48 02/29/2002/29/2024 TSH W/REF FRANK FT4 TSH with reflex free T4 2.300 uIU/m L 0.465- 4.680 Not Available [facility] (Lab) [address] [place], [address], 02/29/2024 14:14:46 02/29/2002/29/2024 VITAM IN B12 (CARLITOS RAZ ) vb12 687 pg/mL 239-93 1 Not Available [facility] (Lab) [address] [place], [address], 02/29/2024 14:47:28 02/29/20 24 02/29/2024 FOLAT E, SERUM /PLAS MA folate 9.59 NG/mL 2.76-2 0.0 Not Available [facility] (Lab) [address] [place], [address], 02/29/2024 14:47:29 02/16/20 24 02/16/2024 imagi ng/di agnos tic resul t No observ ation record ed. [facility] [address] [place], [address], 02/16/2024 11:51:44 06/03/19 25 06/03/2024 XR, cervi cooper spine , 2 or 3 view [facility] [address] [place] [address] Patien t Name: ANTONIA FISHER Access ion #: [id number] Sex: F : 1994 6 Dictat ed By: Quincy Faye Attend ing Physic baldemar: RADHA MCDONALD Orderi andres Physic baldemar: RADHA MCDONALD Exam Date: 2024 09:45 AM Exam Name: XR C SPINE 3V Admitt ing Diagno sis(es ): ACCESS ION #: [id number] INDICA TION: Pain COMPAR GIANA: None TECHNI QUE: 3 views of the cervic al spine were obtain ed. FINDIN GS: The cervic al verteb ral alignm ent is normal . The preden jake space is normal . The interv ertebr al disc spaces are well-m aintai chhaya. No signif icant facet arthro gentry is noted. No acute fractu re, verteb ral compre ssion deform ity or aggres sive osseou s lesion s. The imaged lung apices are unrema rkable . IMPRES TIAGO: No acute fractu re. Electr onical ly Signed by: Quincy Faye at 2024 10:27: 22 AM Page 1 [facility] (Imaging) [address] [place], [address], 06/03/2024 11:29:50 06/03/19 25 06/03/2024 imagi ng/di agnos tic resul t No observ ation record ed. [facility] [address] [place], [address], 06/03/2024 11:32:02 06/03/19 25 06/03/2024 XR, shoul guillermina [facility] [address] [facility] [place] [address] [phone] Patien t Name: ANTONIA FISHER Access ion #: [id number] Sex: F : 1994 6 Dictat ed By: Quincy Faye Attend ing Physic baldemar: RADHA MCDONALD Orderi ng Physic baldemar: RADHA MCDONALD Exam Date: 2024 09:53 AM Exam Name: XR SHOULD ER RT Admitt ing Diagno sis(es ): EXAM: XR SHOULD ER RT CLINIC AL INDICA TION: Pain TECHNI QUE: XR SHOULD ER RT, 4 views Compar giana: None FINDIN GS/IMP RESSIO N: There is no eviden ce of acute fractu re or disloc ation. The visual ized joint space is well mainta ined. The alignm ent is anatom ical. There is no radiop aque foreig n body. Electr onical ly Signed by: Quincy Faye at 2024 10:52: 10 AM Page 1 INTERFACE [facility] (Imaging) [address] [place], [address], 06/03/2024 11:54:22 06/03/19 25 06/03/2024 XR, shoul guillermina, 2 or more view No observ ation record ed. [facility] [address] [place], [address], 06/03/2024 11:56:21 Result Notes None recorded. Problems Name Problem SNOMED Code Status Onset Date Resolution Date Notes Provider Name and Address Organization Details Recorded Time Bilateral plantar fasciitis 04834339343 753935 Active 2020 Not Available [facility] 3 22:00:50 Mean corpuscul ar hemoglobi n below reference range 931446852 Active 2018 Not Available [facility] 3 22:00:50 Mean corpuscul ar volume below reference range 552422556 Completed 201804/28/2021 Not Available [facility] 3 10:44:29 Mixed anxiety and depressiv e disorder 126658230 Active 2018 Not Available [facility] 3 22:00:50 Anemia 883320566 Active 2021 Not Available [facility] 3 22:00:50 Migraine 52077676 Active 2018 Not Available [facility] 3 22:00:50 Serum vitamin B12 borderlin e low 188038749 Active 2018 Not Available [facility] 3 22:00:50 Sleep apnea 78196199 Active 2021 Not Available [facility] 3 22:00:50 Obstructi ve sleep apnea syndrome 04643776 Active 2022 Not Available [facility] 3 22:00:50 Vitamin D deficienc y 77993736 Active 2022 Not Available [facility] 3 22:00:50 Serum vitamin B12 below reference range 712714223 Active 2022 Not Available [facility] 3 22:00:50 Pain in left foot 35845658248 9107 Active 2022 Not Available [facility] 3 22:00:50 Resting tremor 12525401 Active 2022 Not Available [facility] 3 22:00:50 Upper respirato ry infection 70912896 Active 2022 Not Available [facility] 3 22:00:50 Moderate recurrent major depressio n 86859237 Active 2022 Not Available [facility] 3 22:00:50 Hyperlipi demia 40168059 Active 2022 Not Available [facility] 3 22:00:50 Pain of ear 121226510 Active 2022 Olimpia Dutta RN null, [facility] 3 16:55:42 Otalgia of right ear 4963705271 Active 2022 Lisa Lizzy null, [facility] 3 15:45:11 Headache 76836179 Active 2023 Oksana anthony MD [address], [place], [address] , [facility] 4 19:25:00 Laborator y test result abnormal 878549666 Active 2023 Monie Schneider MA null, [facility] 4 15:59:51 Infection of ear 659912536 Active 2023 Monie Schneider MA null, [facility] 4 12:55:51 Acute otitis media 6459249 Active 2023 Oksana anthony MD [address], [place], [address] , [facility] 4 12:17:57 Pain of left hand 23776889252 9103 Active 2023 Oksana anthony MD [address], [address], [place], [address] , [facility] 4 12:07:45 Dysfuncti on of eustachia n tube 36744772 Active 2023 Katy Deluna RN null, [facility] 4 10:49:05 Chronic serous otitis media 73079157 Active 2023 Delgado Rivas MD [address], [address], [place], [address] , [facility] 4 11:04:39 Persisten t insomnia 284318319 Active 2023 Oksana anthony MD [address], [address], [place], [address] , [facility] 4 11:29:05 Generaliz ed anxiety disorder 11169424 Active 2023 Oksana anthony MD [address], [address], [place], [address] , [place] [facility] 4 11:30:12 Microcyto sis 252615516 Active 2023 Karthikeyan Esquivel CMA null, [place] [facility] 4 14:45:27 Perforati on of left tympanic membrane 39303738578 44558 Active 2024 Katy Deluna RN null, [place] [facility] 5 16:08:01 Perforati on of right tympanic membrane 93933194413 23778 Active 2024 Katy Deluna RN null, [place] [facility] 5 16:08:22 Chronic serous otitis media of right ear 434460113 Active 2024 JAIME Anna [address], [address], [place], [address] , [facility] 5 16:12:14 Blepharos pasm 36482433 Active 2024 JUAN ANTONIO Garg null, [place] [facility] 5 11:38:42 Pain of right shoulder joint 32678945894 814214 Active 2024 Oksana anthony MD [address], [address], [place], [address] , 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 Please review these documents and add these problems to the patient's chart manually as needed. Problem Notes None recorded. Procedures Surgical History Date Name Laterality Status Provider Name and Address Organization Details Recorded Time 4 procedure on ear completed Katy Deluna RN [place] [facility] 01/04/2024 10:19:04 Imaging Results Imaging Date Name Status LastModified by [facility] Details LastModified Time 02/16/2024 imaging/diagno stic result active [facility] [address] [place], [address], 02/16/2024 11:51:44 06/03/2024 XR, cervical spine, 2 or 3 view active [facility] (Imaging) [address] [place], [address], 06/03/2024 11:29:50 06/03/2024 imaging/diagno stic result active [facility] [address] [place], [address], 06/03/2024 11:32:02 06/03/2024 XR, shoulder active INTERFACE [facility] (Imaging) [address] [place], [address], 06/03/2024 11:54:22 06/03/2024 XR, shoulder, 2 or more view active [facility] [address] [place], [address], 06/03/2024 11:56:21 Procedure Notes None recorded. Medical Equipment None Reported. Allergies No known drug allergies Medications Name Sig Start Date Stop Date Status Note LastModified by Organization Details LastModified Time cyclobenzap rine 10 mg tablet TAKE 1 TABLET BY MOUTH EVERY DAY NEEDED 07/15 completed Not Available Not Available Not Available amoxicillin 500 mg capsule 04/22 completed Not Available Not Available Not Available atorvastati n 40 mg tablet TAKE 1 TABLET BY MOUTH EVERY DAY 07/15 completed Not Available Not Available Not Available promethazin e-DM 6.25 mg-15 mg/5 mL oral syrup 04/23 completed Not Available Not Available Not Available prednisone 10 mg tablet 04/22 completed Not Available Not Available Not Available doxycycline hyclate 100 mg capsule TAKE 1 CAPSULE BY MOUTH TWICE A DAY FOR 7 DAYS 01/03 completed Not Available Not Available Not Available cefuroxime axetil 250 mg tablet 04/23 completed Not Available Not Available Not Available loperamide 2 mg capsule TAKE 1 CAPSULE BY MOUTH FOUR TIMES A DAY NEEDED active Not Available Not Available No t Available trazodone 50 mg tablet TAKE 1 TABLET BY MOUTH EVERY DAY NEEDED FOR 90 DAYS 06/03 completed Not Available Not Available Not Available azithromyci n 250 mg tablet TAKE 2 TABLETS BY MOUTH TODAY, THEN TAKE 1 TABLET DAILY FOR 4 DAYS 06/26 completed Not Available Not Available Not Available ibuprofen 800 mg tablet TAKE 1 TABLET BY MOUTH EVERY 6 TO 8 HOURS NEEDED 02/28 completed Not Available Not Available Not Available benzonatate 200 mg capsule 06/26 completed Not Available Not Available Not Available sumatriptan 100 mg tablet 04/23 completed Not Available Not Available Not Available meloxicam 15 mg tablet TAKE 1 TABLET BY MOUTH EVERY DAY IN THE MORNING 12/23 completed Not Available Not Available Not Available phenazopyri dine 200 mg tablet 04/22 completed Not Available Not Available Not Available ondansetron HCl 4 mg tablet 04/23 completed Not Available Not Available Not Available prednisone 20 mg tablet TAKE 3 TABLETS BY MOUTH ONCE DAILY FOR 5 DAYS 04/18 completed Not Available Not Available Not Available Tubersol 5 tub. unit/0.1 mL intradermal injection solution Inject 0.1 mL every day by intraderm al route. 03/03 completed Not Available Not Available Not Available sertraline 100 mg tablet 04/23 completed Not Available Not Available Not Available loperamide 2 mg tablet Take 1 tablet 4 times a day by oral route as needed. 06/29 completed Not Available Not Available Not Available sumatriptan 50 mg tablet 11/12 completed Not Available Not Available Not Available cyanocobala min (vit B-12) 1,000 mcg tablet Take 1 tablet every day by oral route. active Not Available Not Available No t Available metronidazo le 500 mg tablet 500 MG ORALLY EVERY 12 HOURS 06/26 completed Not Available Not Available Not Available ciprofloxac in 500 mg tablet 04/23 completed Not Available Not Available Not Available sulfamethox azole 800 mg-trimetho prim 160 mg tablet TAKE 1 TABLET BY MOUTH TWICE A DAY 12/23 completed Not Available Not Available Not Available amoxicillin 500 mg tablet 07/31 completed Not Available Not Available Not Available Kenalog 40 mg/mL suspension for injection Take 1 mL every day by injection route for 1 day. 12/09 completed Not Available Not Available Not Available meloxicam 7.5 mg tablet TAKE 1 TABLET BY MOUTH TWICE A DAY NEEDED FOR 15 DAYS 07/15 completed Not Available Not Available Not Available terbinafine HCl 250 mg tablet 07/31 completed Not Available Not Available Not Available ofloxacin 0.3 % ear drops 04/23 completed Not Available Not Available Not Available amoxicillin 875 mg tablet TAKE 1 TABLET BY MOUTH EVERY 12 HOURS X 10 DAYS 06/26 completed Not Available Not Available Not Available topiramate 25 mg sprinkle capsule 11/12 completed Not Available Not Available Not Available trazodone 100 mg tablet TAKE 1 TABLET BY MOUTH EVERY DAY NEEDED active Not Available Not Available No t Available ciprofloxac in 0.3 % eye drops 04/23 completed Not Available Not Available Not Available benzonatate 100 mg capsule TAKE 1 CAPSULE ORAL ROUTE EVERY 8 HOURS NEEDED 04/18 completed Not Available Not Available Not Available cyanocobala min (vit B-12) 1,000 mcg/mL injection solution Inject 1 mL every month by subcutane ous route for 1 day. 12/06 completed Not Available Not Available Not Available oseltamivir 75 mg capsule TAKE 1 CAPSULE BY MOUTH TWICE A DAY FOR 5 DAYS 06/26 completed Not Available Not Available Not Available ferrous sulfate 325 mg (65 mg iron) tablet TAKE 1 TABLET BY MOUTH EVERY DAY FOR 30 DAYS 06/26 completed Not Available Not Available Not Available triamcinolo ne acetonide 0.1 % topical ointment 04/23 completed Not Available Not Available Not Available polymyxin B sulfate 10,000 unit-trimet hoprim 1 mg/mL eye drops INSTILL 1 DROP IN RIGHT EYE EVERY 3 HOURS 07/04 completed Not Available Not Available Not Available indomethaci n 25 mg capsule TAKE 1 CAPSULE BY MOUTH TWICE A DAY WITH MEALS FOR 20 DAYS. 12/23 completed Not Available Not Available Not Available aspirin 81 mg chewable tablet TAKE 1 TABLET BY MOUTH EVERY DAY 12/23 completed Not Available Not Available Not Available diclofenac sodium 75 mg tablet,eli yed release TAKE 1 TABLET BY MOUTH TWICE A DAY 06/26 completed Not Available Not Available Not Available Provera 10 mg tablet Take 1 tablet every day by oral route for 10 days. active Not Available Not Available No t Available hydroxyzine HCl 25 mg tablet 04/22 completed Not Available Not Available Not Available cyanocobala min (vit B-12) 1,[address] 1 tablet every day by sublingua l route for 30 days. 06/26 completed Not Available Not Available Not Available ibuprofen 600 mg tablet Take 1 tablet 3 times a day by oral route. 07/04 completed Not Available Not Available Not Available levofloxaci n 500 mg tablet 04/23 completed Not Available Not Available Not Available methylpredn isolone 4 mg tablets in a dose pack Take 1 dose pk by oral route as directed. 06/03 completed Not Available Not Available Not Available albuterol sulfate HFA 90 mcg/actuati on aerosol inhaler 04/18 completed Not Available Not Available Not Available propranolol 20 mg tablet TAKE 1 TABLET BY MOUTH TWICE A DAY 07/09 completed Not Available Not Available Not Available ondansetron 4 mg disintegrat ing tablet DISSOLVE 1 TABLET ON THE TONGUE EVERY 6 HOURS NEEDED FOR NAUSEA 07/15 completed Not Available Not Available Not Available cefdinir 300 mg capsule TAKE 1 CAPSULE BY MOUTH TWICE A DAY 04/18 completed Not Available Not Available Not Available fluticasone propionate 50 mcg/actuati on nasal spray,suspe nsion 04/23 completed Not Available Not Available Not Available sertraline 50 mg tablet 06/03 completed Not Available Not Available Not Available metronidazo le 0.75 % topical gel 04/22 completed Not Available Not Available Not Available dicyclomine 10 mg capsule TAKE 1 CAPSULE BY MOUTH THREE TIMES A DAY 12/23 completed Not Available Not Available Not Available loratadine 10 mg tablet 04/22 completed Not Available Not Available Not Available naproxen 500 mg tablet TAKE 1 TABLET BY MOUTH EVERY 12 HOURS WITH FOOD X8-10 DAYS 02/28 completed Not Available Not Available Not Available amoxicillin 875 mg-potassiu m clavulanate 125 mg tablet TAKE 1 TABLET BY MOUTH TWICE A DAY FOR 7 DAYS 02/28 completed Not Available Not Available Not Available neomycin-po lymyxin-hyd rocort 3.5 mg-10,000 unit/mL-1 % ear drops,susp INSTILL 2 DROPS INTO RIGHT EAR 4 TIMES DAILY FOR 7 DAYS 06/26 completed Not Available Not Available Not Available escitalopra m 10 mg tablet TAKE 1 TABLET BY MOUTH EVERY DAY 06/26 completed Not Available Not Available Not Available escitalopra m 20 mg tablet TAKE 1 TABLET BY MOUTH EVERY DAY 04/18 completed Not Available Not Available Not Available Sprintec (28) 0.25 mg-0.035 mg tablet TAKE 1 TABLET BY MOUTH EVERY DAY active Not Available Not Available No t Available cyclobenzap rine 5 mg tablet Take 1 tablet twice a day by oral route for 10 days. active Not Available Not Available No t Available ciprofloxac in 0.3 %-dexametha sone 0.1 % ear drops,suspe nsion INSTILL 4 DROPS INTO AFFECTED EAR(S) BY OTIC ROUTE 2 TIMES PER DAY FOR 7 DAYS 06/03 completed Not Available Not Available Not Available chlorhexidi ne gluconate 0.12 % mouthwash SWISH 15ML IN MOUTH AND SPIT OUT TWICE DAILY 04/18 completed Not Available Not Available Not Available cholecalcif mili (vitamin D3) 1,250 mcg (50,000 unit) capsule TAKE 1 CAPSULE BY MOUTH ONCE EVERY WEEK active Not Available Not Available No t Available cyanocobala min (vit B-12) 1,[address] 1 TABLET UNDER TONGUE AND ALLOW TO DISSOLVE BEFORE SWALLOWIN G ONCE DAILY FOR 30 DAYS 07/04 completed Not Available Not Available Not Available Ubrelvy 100 mg tablet 100 mg as a single dose; if symptoms persist or return, may repeat dose after [?]2 hours. Maximum: 200 mg per 24 hours 2023 active Not Available Not Available Not Avai lable Vitals Date Recorded Body height Body mass index (BMI) Body weight Body temperature Heart rate Oxygen saturation Oxygen saturation in Arterial blood by Pulse oximetry Systolic blood pressure Diastolic blood pressure Provider Name and Address Organization Details Last Updated DateTime 4 167.64 cm 34.7 kg/m2 34741.3 6 g 97.9 [degF] 80 /min 98 % 98 % 126 mm[Hg] 84 mm[Hg] Nai Payne MA [facility] [employer] 4 10:55:05 Date Recorded Body height Body mass index (BMI) Body weight Body temperature Provider Name and Address Organization Details Last Updated DateTime 04/18/2024 167.64 cm 34.9 kg/m2 07694.95 g 98.4 [degF] Katy Deluna RN [facility] [employer] 04/18/2024 15:48:31 Date Recorded Body height Body mass index (BMI) Body weight Body temperature Heart rate Systolic blood pressure Diastolic blood pressure Provider Name and Address Organization Details Last Updated DateTime 5 167.64 cm 35 kg/m2 57423.5 4 g 97.5 [degF] 78 /min 128 mm[Hg] 64 mm[Hg] JUAN ANTONIO Garg [place] [facility] 5 09:35:09 Date Recorded Body height Body mass index (BMI) Body weight Body temperature Provider Name and Address Organization Details Last Updated DateTime 06/10/2024 167.64 cm 35.3 kg/m2 42137.73 g 98.3 [degF] Katy Deluna RN [facility] [employer] [facility] 06/10/2024 11:46:18 Date Recorded Body height Body mass index (BMI) Body weight Body temperature Heart rate Oxygen saturation Oxygen saturation in Arterial blood by Pulse oximetry Pain severity - 0-10 verbal numeric rating [Score] - Reported Systolic blood pressure Diastolic blood pressure Provider Name and Address Organization Details Last Updated DateTime 5 167.64 cm 34.9 kg/m2 91197.9 5 g 98.5 [degF] 67 /min 98 % 98 % 0 118 mm[Hg] 74 mm[Hg] Mary Beth MA [place] [facility] [email or web address] 5 11:44:08 Social History Question Answer Notes LastModified by Organizat ion Details LastModified Time Tobacco Smoking Status Never Smoker Not Available [employer] 06/15/2022 10:40:54 What Is Your Level Of Alcohol Consumption? None Information not available 01/04/2023 What Is Your Level Of Caffeine Consumption? Heavy [id number] Information not available 06/15/2022 How Much Tobacco Do You Chew? None [id number] Information not available 06/15/2022 In The 14 Days Before Symptom Onset, Have You Had Close Contact With A Laboratory-confi rmed COVID-19 While That Case Was Ill? No [id number] Information not available 06/15/2022 In The 14 Days Before Symptom Onset, Have You Had Close Contact With A Person Who Is Under Investigation For COVID-19 While That Person Was Ill? No [id number] Information not available 06/15/2022 Are You Currently Employed? Yes Information not available 07/14/2022 What Type Of Diet Are You Following? REGULAR [id number] Information not available 06/15/2022 Which Illicit Or Recreational Drugs Have You Used? None [id number] Information not available 06/15/2022 Do You Or Have You Ever Used E-cigarettes Or Vape? Never Used Electronic Cigarettes [id number] Information not available 06/15/2022 What Is The Highest Grade Or Level Of School You Have Completed Or The Highest Degree You Have Received? [id number] Information not available 01/04/2023 Do You Have An Electrostatic Air Filter? 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 No Information not available 07/14/2022 Have There Been Any Changes To Your Family Or Social Situation? No Information not available 01/04/2023 Are There Any Guns Present In Your Home? No [id number] Information not available 06/15/2022 Do You Have A Humidifier? No Information not available 07/14/2022 Do You Use Insect Repellent Routinely? No Information not available 01/04/2023 Where Do You Live? [facility] Information not available 07/14/2022 Do You Have Moisture Problems In Your Home? No Information not available 07/14/2022 What Was The Date Of Your Most Recent Tobacco Screening? 07/15/2024 [email or web address] Information not available 07/15/2024 Do You Have Any Pets? No Information not available 07/14/2022 What Is Your Relationship Status? Single Information not available 01/04/2023 Do You Use Your Seat Belt Or Car Seat Routinely? Yes Information not available 07/14/2022 Do You Have Smoke And Carbon Monoxide Detectors In Your Home? Yes Information not available 07/14/2022 Are You Passively Exposed To Smoke? No Information not available 07/14/2022 Do You Feel Stressed (tense, Restless, Nervous, Or Anxious, Or Unable To Sleep At Night)? [id number] Information not available 01/04/2023 Do You Use Any Illicit Or Recreational Drugs? No Information not available 01/04/2023 Do You Use Sunscreen Routinely? No Information not available 07/14/2022 Has Tobacco Cessation Counseling Been Provided? No N/a [email or web address] Information not available 06/27/2023 Have You Recently Traveled Abroad? No Information not available 01/04/2023 Do You Have Any Dietary Restrictions? No [id number] Information not available 06/15/2022 Do You Or Have You Ever Used Any Other Forms Of Tobacco Or Nicotine? No Information not available 01/04/2023 Sex: Female Functional Status Question Answer Note LastModified by Organizat ion Details LastModified Time What is your exercise level? Heavy [id number] Information not available 06/15/2022 Mental Status None recorded. Family History Relationship Description Onset Age of this Age Resolved Age Notes LastModified by Organization Details LastModified Time Paternal Grandmother Diabetes mellitus [id number] Not available 06/15/2022 10:41:37 Maternal Grandmother Malignant tumor of breast [id number] Not available 06/15/2022 10:41:37 Maternal Grandfather Myocardial infarction [email or web address] Not available 06/26 16:33:26 Notes:NO ENT Medical History Condition Response HEADACHES/MIGRAINES Y ANXIETY DISORDER Y EAR OR HEARING PROBLEMS Y ASTHMA Y ALLERGIES/HAYFEVER Y ENT Y DEPRESSION (INCLUDING POST ) Y Gynecological History Statement/Question Response Abnormal Pap N Flow Moderate Date of LMP 07/06/2024 Dislike of Light during Menstrual Headac he N STIs/STDs N Date of Last Pap Current Control Method None Breast Problems no How many live births 0 Sexually Active? Y Menses Monthly Y Discharge no Obstetrics History GPAL:G 0 P 0 0 0 0 Type Value Multiple Births 0 Full Term 0 Induced 0 Spontaneous 0 Premature 0 Living 0 Ectopics 0 Total 0 Immunizations Vaccine Type Date Status Note Provider Nam e and Address Organization Details Recorded Time Influenza, split virus, quadrivalent, preservative 7 completed Sumaya Martinez RMA null, [facility] [facility] 06/03/2024 09:33:32 MMR 7 completed Sumaya Martinez RMA null, [facility] 06/03/2024 09:33:32 COVID-19, mRNA, LNP-S, PF, 30 mcg/0.3 mL dose 1 completed Sumaya Martinez RMA null, [facility] 06/03/2024 09:33:32 COVID-19, mRNA, LNP-S, PF, 30 mcg/0.3 mL dose 1 completed Sumaya Martinez RMA null, [facility] 06/03/2024 09:33:32 SARS-COV-2 (COVID-19) vaccine, UNSPECIFIED 2 completed Sumaya Martinez RMA null, [facility] 06/03/2024 09:33:32 Tdap 7 completed Sumaya Martinez, RMA null, [place] [facility] [employer] [facility] 06/03/2024 09:33:32 Influenza, split virus, trivalent, preservative 5 completed Sumaya [place], RMA null, [place] [facility] [employer] [facility] 06/03/2024 09:33:32 HPV, quadrivalent 4 completed Sumaya Herndon[place], RMA null, [facility] [employer] [facility] 06/03/2024 09:33:32 HPV, quadrivalent 4 completed Sumaya Martinez, RMA null, [facility] [employer] [facility] 06/03/2024 09:33:32 HPV, quadrivalent 3 completed Sumaya Martinez, RMA null, [facility] [employer] [facility] 06/03/2024 09:33:32 COVID-19, mRNA, LNP-S, PF, 100 mcg/0.5mL dose or 50 mcg/0.25mL dose 1 completed Sumaya Martinez, RMA null, [facility] [employer] [facility] 06/03/2024 09:33:32 Influenza, split virus, quadrivalent, PF 0 completed Not Available [facility] 06/06/2023 17:39:44 Influenza, split virus, trivalent, PF 4 completed Oksana Tan MD [address], [place], [address], [facility] [employer] [facility] 03/04/2024 19:18:35 Past Encounters Encounter ID Performer Location Encounter Start Date Encounter Closed Date Diagnosis/Indication Diagnosis SNOMED-CT Code Diagnosis ICD10 Code Diagnosis Note [id number] [facility] Family Practice [place] [address] [place] [address] 06/29/2020 00:00:00 06/29/2020 09:32:42 [id number] [facility] Podiatry L[place] Lazo [address] [place] [address] 10/12/2020 00:00:00 10/12/2020 13:58:08 [id number] [facility] [place] [address] [place] [address] 11/02/2020 00:00:00 11/02/2020 13:55:39 [id number] [facility] [place] [address] [place] [address] 12/23/2020 00:00:00 12/23/2020 09:31:37 [id number] [facility] [place] [address] [place] [address] y , [place] [address] 03/03/2021 00:00:00 03/03/2021 17:00:29 [id number] [facility] [place] [address] [facility] [address] [place] [address] 03/22/2021 00:00:00 03/23/2021 15:03:32 [id number] [facility] [place] [facility] [place] [address] 08/31/2021 00:00:00 08/31/2021 10:50:54 [id number] Sotero Story MD [facility] [place] [address], [address] [address] 07/14/2022 14:48:32 07/15/2022 08:39:08 Obstructive sleep apnea syndrome 94643533 G47.33 [id number] Oksana anthony MD [facility] [place] [address] [place] [address] [place] [address] 01/04/2023 10:08:21 01/04/2023 11:06:33 Screening - NAD 966231444 Z13.9 Get yearly flu shotGet tdap if not doneGet COVID 19 vaccine and its boosters PAP: She does see Dr Roberts, referred 01/04/2023 RTC in 3 months with labsER if worse, she is verbalized her understand ing of the above Gynecologi c examination 01275474 Z01.419 Vitamin D deficiency 347 64827 E55.9 Serum keshia min B12 below reference range 225699429 R79.89 Long-term drug therapy 968584830 Z79.899 Pain in left foot 237397 8159 32167 M79.672 Was told in the past she had plantar faciitis, does not want to see Dr Watkins, will refer to U ortho Resting tremor 96651510 G25.2 States that she has tremors especially when she tries to go to the gun range, will refer to Dr Brooks neurology Upper resp iratory infection 35579627 J06.9 Slight runny nose, no fevers or chills, no cough, no chest pain or wheezingGe t on z-packGet COVID 19 RT PCR, flu shot and History an d physical examination, pre-employment 804768387 Z02.1 Wants to get TB test done, will order Moderate r ecurrent major depression 23119872 F33.1 On escitalopr am 10mg daily, does very well on this, OK renew when she wants, not suicidal or homicidal Obstructiv e sleep apnea syndrome 16078893 G47.[address] Story [id number] Oksana anthony MD [facility] Internal Med [facility] [address] [facility], [facility] 15 [place] [address] 06/27/2023 16:17:54 06/27/2023 17:04:09 Screening - NAD 288201699 Z13.9 Get yearly flu shotGet tdap if not doneGet COVID 19 vaccine and its boosters PAP: She does see Dr Roberts, referred 01/04/2023 RTC in 3 months with labsER if worse, she is verbalized her understand ing of the above Gynecologi c examination 51542180 Z01.419 Vitamin D deficiency 347 27221 E55.9 Serum keshia min B12 below reference range 348249511 R79.89 Pain in left foot 034868 2781 74799 M79.672 Was told in the past she had plantar faciitis, does not want to see Dr Watkins, will refer to U ortho Resting tremor 10169012 G25.2 States that she has tremors especially when she tries to go to the gun range, will refer to Dr Brooks neurology Nikki Schmidt GUIDANCE CONSULTANT 01/24/2023 , started on propranolo l, f/u in 3 months, is to stop the propranolo l, as it does not help, wants to wean off Moderate r ecurrent major depression 71945443 F33.1 On escitalopr am 10mg daily, wants to increase the dose, has more depression May need to see psychiatry if not betterNot suicidal or homicidal Obstructiv e sleep apnea syndrome 09828046 G47.[address] Story Hyperlipidemia 34485352 E78.5 On atorvastat in 40mg dailyGet labs [id number] Oksana anthony MD [facility] Internal Med [place] [address] [facility] y , [facility] [place] [address] 07/10/2023 16:18:20 07/10/2023 16:55:33 Screening - NAD 999429959 Z13.9 Get yearly flu shotGet tdap if not doneGet COVID 19 vaccine and its boosters PAP: She does see Dr Roberts, referred 01/04/2023 RTC in 3 months with labsER if worse, she is verbalized her understand ing of the above Gynecologi c examination 02677080 Z01.419 Vitamin D deficiency 347 53953 E55.9 Serum keshia min B12 below reference range 596580839 R79.89 Pain in left foot 153789 5165 48461 M79.672 Was told in the past she had plantar faciitis, does not want to see Dr Watkins, will refer to U ortho Resting tremor 17876549 G25.2 States that she has tremors especially when she tries to go to the gun range, will refer to Dr Brooks neurology Nikki Schmidt GUIDANCE CONSULTANT 01/24/2023 , started on propranolo l, f/u in 3 months, is to stop the propranolo l, as it does not help, wants to wean off OV 07/10/2023 : Now off the propranolo l, get a referral to neurology Moderate r ecurrent major depression 27847942 F33.1 On escitalopr am 20mg dailyMay need to see psychiatry if not betterNot suicidal or homicidal Obstructiv e sleep apnea syndrome 67338594 G47.[address] Story Hyperlipidemia 24215831 E78.5 Not on atorvastat in 40mg dailyGet labs Headache 00942534 R51.9 CT head: 07/07/2023 : ER [facility]: NegGet MRI brain Maik mcdonald did not help as per her history 07/10/2023 Referred back to neurology and get MRIStart on Ubrelvy [id number] Oksana anthony MD [facility] [address] [place] [address] [place] [address] 10/09/2023 11:19:25 10/09/2023 12:16:39 Acute otitis media 6150548 H66.91 Will start on augmentinN otify if not betterER if worse, she did verbalize her understand ing of the above [id number] Oksana anthony MD [facility] Internal Med Ji llkar[place] [address] [place] [address] [place] [address] 11/13/2023 11:43:32 11/13/2023 12:22:49 Acute otitis media 7132672 H66.91 S/p treated with augmentin, no response, does not want PCN nowWill now get on doxycyclin e 100mg bid for 7 days, can take with pro bioticsAls o see ENT Pain of left hand 318622 6765 15582 M79.642 Get xray L handMay need to see orthoStart on meloxicam as needed Screening - NAD 05432522 3 Z13.9 Get yearly flu shotGet tdap if not doneGet COVID 19 vaccine and its boosters PAP: She does see Dr Roberts, referred 01/04/2023 RTC in 3 months with labsER if worse, she is verbalized her understand ing of the above Gynecologi c examination 92997645 Z01.419 Vitamin D deficiency 347 35610 E55.9 Serum keshia min B12 below reference range 481749437 R79.89 Pain in left foot 369290 3948 28802 M79.672 Was told in the past she had plantar faciitis, does not want to see Dr Watkins, will refer to U ortho Resting tremor 40243262 G25.2 States that she has tremors especially when she tries to go to the 28m[employer] range, will refer to Dr Brooks neurology Nikki Schmidt GUIDANCE CONSULTANT 01/24/2023 , started on propranolo l, f/u in 3 months, is to stop the propranolo l, as it does not help, wants to wean off OV 07/10/2023 : Now off the propranolo l, get a referral to neurology OV 11/13/2023 : See neurology Moderate r ecurrent major depression 37744253 F33.1 On escitalopr am 20mg dailyMay need to see psychiatry if not betterNot suicidal or homicidal Obstructiv e sleep apnea syndrome 53729625 G47.[address] Story Hyperlipidemia 71994307 E78.5 On atorvastat in 40mg dailyGet labs Headache 75100225 R51.9 CT head: 07/07/2023 : ER [facility]: NegMRI: brain 07/25/2023 : Neg Sumatripta n did not help as per her history 07/10/2023 Referred back to neurology and get MRIStart on Ubrelvy [id number] Delgado Rivas MD [facility] ENT [place] [address] [place] [address] 01/04/2024 09:58:38 01/04/2024 14:40:58 Chronic serous otitis media 17660379 H65.21 [id number] Oksana anthony MD [facility] Internal Med [facility] [address] [facility], [facility] 15 [place] [address] 02/29/2024 10:42:29 02/29/2024 11:32:43 Pain of left hand 1136316976 27469 M79.642 Get xray L handMay need to see orthoStart on meloxicam as needed Xray L hand: 11/13/2023 Screening - NAD 00211527 3 Z13.9 Get yearly flu shotGet tdap if not doneGet COVID 19 vaccine and its boosters PAP: She does see Dr Roberts, referred 01/04/2023 RTC in 3 months with labsER if worse, she is verbalized her understand ing of the above Gynecologi c examination 10758394 Z01.419 Vitamin D deficiency 347 45756 E55.9 Serum keshia min B12 below reference range 139219685 R79.89 Pain in left foot 970550 6244 16625 M79.672 Was told in the past she had plantar faciitis, does not want to see Dr Watkins, will refer to [facility] ortho Resting tremor 59058021 G25.2 States that she has tremors especially when she tries to go to the gun range, will refer to Dr Brooks neurology Nikki Gavins GUIDANCE CONSULTANT 01/24/2023 , started on propranolo l, f/u in 3 months, is to stop the propranolo l, as it does not help, wants to wean off OV 07/10/2023 : Now off the propranolo l, get a referral to neurology OV 11/13/2023 : See neurology OV 02/29/2024 : Dr Howe 07/25/2023 , was to take topamax Moderate r ecurrent major depression 02788069 F33.1 On escitalopr am 20mg dailyMay need to see psychiatry if not betterNot suicidal or homicidal Obstructiv e sleep apnea syndrome 66687382 G47.[address] Story Hyperlipidemia 06961222 E78.5 On atorvastat in 40mg dailyGet labs Headache 94225542 R51.9 CT head: 07/07/2023 : ER [facility]: NegMRI: brain 07/25/2023 : Marcus Howe 07/25/2023 Sumatripta n did not help as per her history 07/10/2023 Was to take topiramate Missed her apt with Dr Howe, referred again 02/29/2024 Chronic se gaby otitis media 20775527 H65.21 Dr Rivas 01/04/2024 , to get audiogram and tympanogra m Persistent insomnia 1919 55651 G47.09 Has noted insmonia, will start on trazodone, all side effects explained to her, sleep hygiene explained Generalize d anxiety disorder 73150825 F41.1 Anxiety and stress d/t her job as a bus monitorNot suicidal or homicidalA grees to see psychiatry Administra tion of influenza vaccine 44082512 Z23 [id number] Trish Hernandez NP [facility] [address] [facility], [address] [address] 03/20/2024 10:34:03 03/20/2024 12:00:29 [id number] JAIME Anna [facility] ENT Lidia Lazo [address] [place] [address] 04/18/2024 15:34:30 04/18/2024 16:15:08 Chronic serous otitis media of right ear 737183007 H65.21 Perforatio n of right tympanic membrane 8625031215 620607 H72.91 [id number] Oksana anthony MD [facility] Primary Care Heron diop [address] [facility] [address] [place] [address] 06/03/2024 09:20:37 06/03/2024 09:53:46 Pain of right shoulder joint 0520083799 0422864 M25.511 Get xrays shoulder and c-spineWil l start on meloxicam and flexerillM ay need PT or even see othoOff work for the week, 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 Pain of left hand 424446 3862 54058 M79.642 Get xray L handMay need to see orthoStart on meloxicam as needed Xray L hand: 11/13/2023 Screening - NAD 77845504 3 Z13.9 Get yearly flu shotGet tdap if not doneGet COVID 19 vaccine and its boosters PAP: She does see Dr Roberts, referred 01/04/2023 RTC in 1 months with labsER if worse, she is verbalized her understand ing of the above Gynecologi c examination 60422098 Z01.419 Vitamin D deficiency 347 30216 E55.9 Get labs Serum keshia min B12 below reference range 952733715 R79.89 Pain in left foot 135656 4532 88521 M79.672 Was told in the past she had plantar faciitis, does not want to see Dr Watkins, will refer to U ortho Resting tremor 17557652 G25.2 States that she has tremors especially when she tries to go to the gun range, will refer to Dr Brooks neurology Nikki Schmidt NP 01/24/2023 , started on propranolo l, f/u in 3 months, is to stop the propranolo l, as it does not help, wants to wean off OV 07/10/2023 : Now off the propranolo l, get a referral to neurology OV 11/13/2023 : See neurology OV 02/29/2024 : Dr Howe 07/25/2023 , was to take topamax OV 06/03/2024 : Keep apts with neurology Moderate r ecurrent major depression 18974996 F33.1 Not taking escitalopr am 20mg daily, self stoppedMay need to see psychiatry if not betterNot suicidal or homicidal Obstructiv e sleep apnea syndrome 44818795 G47.[address] Story Hyperlipidemia 30698181 E78.5 On atorvastat in 40mg dailyGet labs Headache 73351790 R51.9 CT head: 07/07/2023 : ER [facility]: NegMRI: brain 07/25/2023 : Marcus Howe 07/25/2023 Sumatripta n did not help as per her history 07/10/2023 Was to take topiramate Missed her apt with Dr Howe, referred again 02/29/2024 Chronic se gaby otitis media 50434932 H65.21 Dr Rivas 01/04/2024 , to get audiogram and tympanogra m Persistent insomnia 1919 69911 G47.09 Has noted insmonia,O n trazodone, all side effects explained to her, sleep hygiene explained Generalize d anxiety disorder 93037006 F41.1 Anxiety and stress d/t her job as a bus monitorNot suicidal or homicidalA grees to see psychiatry [id number] Delgado Rivas MD [facility] ENT Lidia Lazo [address] [place] [address] 06/10/2024 11:40:19 06/11/2024 12:35:05 Pain of ear 782265681 H92.09 Perforatio n of right tympanic membrane 8638280571 118865 H72.91 [id number] MD [facility]UK[facility] [place] [address] [facility] [address] [facility] [place] [address] 07/15/2024 11:17:57 07/15/2024 12:41:26 Pain of left hand 6181605861 85727 M79.642 Get xray L handMay need to see orthoStart on meloxicam as needed Xray L hand: 11/13/2023 Screening - NAD 98357833 3 Z13.9 Get yearly flu shotGet tdap if not doneGet COVID 19 vaccine and its boosters PAP: She does see Dr Roberts, referred 01/04/2023 RTC in 4 months with labsER if worse, she is verbalized her understand ing of the above Gynecologi c examination 13475044 Z01.419 Vitamin D deficiency 347 76247 E55.9 Get labs Serum keshia min B12 below reference range 011954431 R79.89 Pain in left foot 399317 9467 18845 M79.672 Was told in the past she had plantar faciitis, does not want to see Dr Watkins, will refer to Dr Thomson Resting tremor 04361980 G25.2 States that she has tremors especially when she tries to go to the gun range, will refer to Dr Brooks neurology Nikki Roxana GUIDANCE CONSULTANT 01/24/2023 , started on propranolo l, f/u in 3 months, is to stop the propranolo l, as it does not help, wants to wean off OV 07/10/2023 : Now off the propranolo l, get a referral to neurology OV 11/13/2023 : See neurology OV 02/29/2024 : Dr Howe 07/25/2023 , was to take topamax OV 06/03/2024 : Keep apts with neurology Moderate r ecurrent major depression 93579428 F33.1 Not taking escitalopr am 20mg daily, self stoppedMay need to see psychiatry if not betterNot suicidal or homicidal Obstructiv e sleep apnea syndrome 93712610 G47.[address] Story Hyperlipidemia 34772537 E78.5 On atorvastat in 40mg dailyGet labs Headache 92661464 R51.9 CT head: 07/07/2023 : ER [facility]: NegMRI: brain 07/25/2023 : Marcus Howe 07/25/2023 Sumatripta n did not help as per her history 07/10/2023 Was to take topiramate Missed her apt with Dr Howe, referred again 02/29/2024 , 07/15/2024 Chronic se gaby otitis media 27450124 H65.21 Dr Rivas 01/04/2024 , to get audiogram and tympanogra m Persistent insomnia 1919 81230 G47.09 Has noted insmonia,O n trazodone, all side effects explained to her, sleep hygiene explained Generalize d anxiety disorder 19491450 F41.1 Anxiety and stress d/t her job as a bus monitorNot suicidal or homicidalA grees to see psychiatry Diarrhea 80083914 R19.7 OV 07/15/2024 :Is to see Blanka Borrego this Health Concerns Section Related Observation LastModified by Organization Detai ls LastModified Time None Recorded Concern Status LastModified by Organization Details LastModified Time None Recorded Advance Directives Directive None Recorded Payers Encounter Date Sequence Insurance Name Policy Number Policy Hamm Covered Member ID Hamm Member ID Guarantor Name 02/29/2024 1 [facility] (MEDICAID HMO) [id number] Amelia T M Lambert [id number] Amelia T M Lambprisca 04/18/2024 1 [facility] (MEDICAID HMO) [id number] Amelia T M Lambert [id number] Amelia T M Lambert 06/03/2024 1 [facility] (MEDICAID HMO) [id number] Amelia T M Lambert [id number] Amelia T M Lambert 06/10/2024 1 [facility] (MEDICAID HMO) [id number] Amelia T M Lambert [id number] Amelia T M Lambert 07/15/2024 1 [facility] (MEDICAID HMO) [id number] Amelia T M Lambert [id number] Amelia T M Lambprisca Notes Date Note Type Note Provider Name and Address Organization Details Recorded Time 02/29/2024 text/html OV 01/04/2023:He re to establish care Past Hx:DepressionOSA on CPAPL foot pain Reviewed social family and surgical history She is here to discuss above, she also wants a referral to podiatry for L foot pain, states that she has also noted some tremors, also has noted URI sx, not yet tested for COVID 19 OV 06/27/2023: Here for her f/u apt, she feels well today, no new labs, feels that the propranolol is not helped her tremors, also would like an increase in the lexapro dose OV 07/10/2023:ACV: She has noted symptoms of migraine and would like to get on a medication for this, she was seen in the ER and did get a CT head that was negative OV 10/09/2023: ACV: R ear ache, no dizziness, no N/V, no fevers, no d/c OV 11/13/2023: Here as her R ear ache is still not better, she has a sharp shooting pain, no ear d/c, no N/V or dizzinessAlso has noted L hand pain, she states that while walking in [facility] she 'smacked' her L hand on a metal rack, now has L hand pain and some swelling, she is R HD, no N/T or weakness of the executive director of marketing OV 02/29/2024: Here for her f/u apt, she is doing well today, she is to do labs, she did see neurology but missed her f/u apt Oksana Tan MD [address], [place], [address], [place] 03/04/2024 19:19:03 04/18/2024 text/html This patient has a past medical history significant for vitamin-D deficiency, HLD, anemia, anxiety, JOHN, chronic serous otitis media, tympanic membrane rupture, and depression who presents to the office with a complaint of right otalgia that has been intermittent over the last year. She states that in 2013 she had a tympanoplasty completed by Dr. Page in which everything seemed to be doing well up until this past year. She reports that the night of she developed significant pain with associated swelling to her neck area on the affected side. She states that she has been taking Motrin and Tylenol without symptom relief. She denies any otorrhea. JAIME Anna [address], [place], [address], [place] 04/18/2024 16:14:35 06/03/2024 text/html OV 01/04/2023:He re to establish care Past Hx:DepressionOSA on CPAPL foot pain Reviewed social family and surgical history She is here to discuss above, she also wants a referral to podiatry for L foot pain, states that she has also noted some tremors, also has noted URI sx, not yet tested for COVID 19 OV 06/27/2023: Here for her f/u apt, she feels well today, no new labs, feels that the propranolol is not helped her tremors, also would like an increase in the lexapro dose OV 07/10/2023:ACV: She has noted symptoms of migraine and would like to get on a medication for this, she was seen in the ER and did get a CT head that was negative OV 10/09/2023: ACV: R ear ache, no dizziness, no N/V, no fevers, no d/c OV 11/13/2023: Here as her R ear ache is still not better, she has a sharp shooting pain, no ear d/c, no N/V or dizzinessAlso has noted L hand pain, she states that while walking in [facility] she 'smacked' her L hand on a metal rack, now has L hand pain and some swelling, she is R HD, no N/T or weakness of the executive director of marketing OV 02/29/2024: Here for her f/u apt, she is doing well today, she is to do labs, she did see neurology but missed her f/u apt OV 06/03/2024: Here for her apt to discuss R shoulder and neck pain, states that she may have slept wrong, no N/T or weakness in the R UE, no acute traumaNo recent labs Oksana Tan MD [address], [place], [address], [place] [facility] [employer] 06/03/2024 09:59:12 06/10/2024 text/html this patient was found by our nurse practitioner to have a right tympanic membrane perforation and she was sent to a neuro vegetable vendor at [place]. No perforation was found and she is here for a final checkup. Delgado Rivas MD [address], [place], [address], [place] 06/10/2024 11:53:10 07/15/2024 text/html OV 01/04/2023:He re to establish care Past Hx:DepressionOSA on CPAPL foot pain Reviewed social family and surgical history She is here to discuss above, she also wants a referral to podiatry for L foot pain, states that she has also noted some tremors, also has noted URI sx, not yet tested for COVID 19 OV 06/27/2023: Here for her f/u apt, she feels well today, no new labs, feels that the propranolol is not helped her tremors, also would like an increase in the lexapro dose OV 07/10/2023:ACV: She has noted symptoms of migraine and would like to get on a medication for this, she was seen in the ER and did get a CT head that was negative OV 10/09/2023: ACV: R ear ache, no dizziness, no N/V, no fevers, no d/c OV 11/13/2023: Here as her R ear ache is still not better, she has a sharp shooting pain, no ear d/c, no N/V or dizzinessAlso has noted L hand pain, she states that while walking in [facility] she 'smacked' her L hand on a metal rack, now has L hand pain and some swelling, she is R HD, no N/T or weakness of the executive director of marketing OV 02/29/2024: Here for her f/u apt, she is doing well today, she is to do labs, she did see neurology but missed her f/u apt OV 06/03/2024: Here for her apt to discuss R shoulder and neck pain, states that she may have slept wrong, no N/T or weakness in the R UE, no acute traumaNo recent labs OV 07/15/2024: Here for her f/u apt, her shoulder pain is resolved, now has intermittent diarrhea, see cases, she is to see GI this weekHas also noted some L ankle pain and swelling, none todayShe did do the labs Oksana Tan MD [address], [place], [id number], [place] 07/15/2024 13:02:13 OBGyn Episode No OBEpisode recorded.
[2024-07-24 13:42] LABS: CRP 3.2 mg/dL (<1.0)
[2024-07-29 12:53] LABS: Immunoglobulin A 255 mg/dL (47-310); TTG IGA AB <1.0 U/mL
== END 2024-07-24 11:53 | disposition home or self-care (01) ==
LOC: ANHLAB 11:53
PROVIDERS: PCP Internal Medicine; Visit Provider Nurse Practitioner
DX: K58.0 Irritable bowel syndrome with diarrhea (principal); E73.9 Lactose intolerance, unspecified
CPT/HCPCS: 36415; 82784; 83516; 85652; 86140